=== PATIENT | female | born 1955 | race Caucasian/White ===

== ENCOUNTER → 2017-03-30 | Outpatient (CLI) | payer OTHER ==
--- NOTE | 2017-03-30 14:53 | DIAGNOSTIC IMAGING REPORT ---
L FOOT MIN 3 VIEWS ROUTINE CLINICAL HISTORY: Left foot pain status post trauma COMPARISON: None. DISCUSSION: There are postsurgical changes of a right first metatarsal bunionectomy. There is acute fracture involving the proximal phalanx of the fifth toe the junction of the middle distal one third. There are no dislocations. IMPRESSION: Acute fracture involving the proximal phalanx of the fifth toe. Electronically signed by: Shreyas Rangel M.D. 03/30/2017 2:51 PM Dictated Date/Time: 03/30/2017 2:50 PM
== END | disposition home or self-care (01) ==
LOC: C.RAD 14:10
PROVIDERS: ATTEND Physician Assistant Medical
DX: S92.515A Nondisplaced fracture of proximal phalanx of left lesser toe(s), initial encounter for closed fracture (principal); X58.XXXA Exposure to other specified factors, initial encounter

== ENCOUNTER 2017-10-20 11:34 | Emergency (ER) | payer OTHER ==
[~2017-10-20] VITALS: Ht 142.2 cm; Wt 50.0 kg
[2017-10-20 11:49] VITALS: TEMP 36.8; Ht 142.2 cm; Wt 50.0 kg
[2017-10-20] MEDS ORDERED: KETOROLAC TROMETHAMINE 60 MG/2 ML VIAL IM STA (12:40)
--- NOTE | 2017-10-20 13:18 | DIAGNOSTIC IMAGING REPORT ---
PELVIS 1 OR 2 VIEW ROUTINE HISTORY: 62 years-old Female Fall, low back pain acute low back and pelvic pain status post fall COMPARISON: Lumbar spine radiographs of same day TECHNIQUE: Single AP view of the pelvis FINDINGS: There are mild degenerative changes about the bilateral femoral acetabular joints. No acute fracture or dislocation. Phleboliths of the pelvis. IMPRESSION: No acute fracture or dislocation. The above report was generated using voice recognition software. It may contain grammatical, syntax or spelling errors. Electronically signed by: Eduard Ibrahim M.D. 10/20/2017 1:17 PM Dictated Date/Time: 10/20/2017 1:15 PM
--- NOTE | 2017-10-20 13:19 | DIAGNOSTIC IMAGING REPORT ---
L-SPINE MIN 4 VIEWS ROUTINE HISTORY: Trauma. Pain. Fall, low back pain COMPARISON: None. FINDINGS: There is no fracture. No subluxation. Disc spaces are preserved. IMPRESSION: No fracture or subluxation within the lumbar spine. The above report was generated using voice recognition software. It may contain grammatical, syntax or spelling errors. Electronically signed by: Joseph Gómez M.D. 10/20/2017 1:18 PM Dictated Date/Time: 10/20/2017 1:17 PM
--- NOTE | 2017-10-20 14:02 | DIAGNOSTIC IMAGING REPORT ---
LUMBAR SPINE WITHOUT CLINICAL HISTORY: 62 years-old Female presenting with Fall, low back pain. TECHNIQUE: Multidetector CT of the lumbar spine was performed without the use of intravenous contrast. IV contrast: None. A dose lowering technique was used consistent with the principles of ALARA (as low as reasonably achievable). COMPARISON: Plain radiographs from 10/20/2017. CT DOSE (mGy.cm): The estimated cumulative dose is 844.84 mGy.cm. FINDINGS: [employer] Engineer topogram: Unremarkable. Transitional lumbosacral anatomy with sacralization of L5. Normal lumbar lordosis. Vertebral bodies maintain normal height and alignment. Intervertebral disc heights preserved. No significant degenerative change. No osseous spinal canal or neural foraminal narrowing. Limited evaluation of the soft tissues demonstrates small disc bulge at L3-4 without significant spinal canal narrowing. Visualized portion of the sacrum is intact. Nondisplaced fracture of the right transverse process of L1 suspected. Mildly displaced fracture of the right transverse process of L2 suspected. 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 Mild facet arthropathy noted in the lower lumbar spine. Paraspinal soft tissues within normal limits allowing for noncontrast technique. IMPRESSION: 1. Fractures of the right transverse processes of L1 and L2. 2. Mild degenerative changes without osseous neural foraminal or spinal canal narrowing. 3. Transitional lumbosacral anatomy. Electronically signed by: Mahesh Sotelo M.D. 10/20/2017 2:01 PM Dictated Date/Time: 10/20/2017 1:53 PM
--- NOTE | 2017-10-20 14:17 | EMERGENCY ROOM VISIT NOTE ---
History First contact with patient: 11:52 Chief Complaint: FALL Stated Complaint: FALL - HIT HEAD, LEFT BACK PAIN, SWELLING History of Present Illness The patient is a 62 year old female who presents to the Emergency Room via private vehicle with complaints of "fall-hit head, left back pain, swelling". The patient states that on Thursday around 11 PM she was walking back to her residence when she believes she lost her balance and fell onto the concrete steps. She did not fall down them. She states that since then she has had pain in the left gluteal region and the low back. She also notes pain just below her chin. She denies any headache, lightheadedness, dizziness, nausea, numbness, tingling, burning in the lower extremity. She is able to bear weight but it is painful. She notes minimal numbness in the skin around a bruise on the left gluteal region. She had Motrin last night with minimal relief. Ice has also provided minimal relief. She has been able to sleep but the pain has been waking her up. She rates the pain as a 3/10 at rest and 10/10 with movement. She has a history of low back injury secondary to an injury she sustained while on the job in 1981. Review of Systems A complete 10-point Review of Systems was discussed with the patient, with pertinent positives and negatives listed in the History of Present Illness. All remaining Review of Systems questions can be considered negative unless otherwise specified. Past Medical/Surgical History Previous back injury. Family History Noncontributory. Social History Smoking Status: Never Smoker Patient lives locally. Current/Historical Medications Scheduled PRN Oxycodone Ir (Roxicodone Ir), 1-2 TAB PO Q6 PRN for Pain Physical Exam Vital Signs Date Time Temp Pulse Resp B/P (MAP) Pulse Ox O2 Delivery O2 Flow Rate FiO2 10/20/17 15:37 84 16 143/77 98 Room Air 10/20/17 14:39 71 16 141/83 99 Room Air 10/20/17 11:49 36.8 98 16 115/72 99 Room Air Physical Exam VITAL SIGNS - Vital signs and nursing notes were reviewed. Stable. GENERAL -62-year-old female appearing her stated age. Communicates well with provider and answers questions appropriately. SKIN - Gross examination of the entire body surface demonstrates no lacerations to the body surface. There is bruising noted to the left lateral superior gluteal region. HEAD - Normocephalic, Atraumatic. No Rudd's Sign or Raccoon's Eyes. No depressed skull fractures palpable. EYES - PERRL with EOMI bilaterally. Without subconjunctival hemorrhage. Palpebral conjunctiva pink and moist with no injection. EARS - No deformities of external structures noted on gross examination bilaterally. No hemotympanum present. NOSE - Midline and without cyanosis. No epistaxis or clear watery discharge noted. Septum midline without deviation. No septal hematoma noted. No overlying ecchymosis noted. MOUTH/OROPHARYNX - Without perioral cyanosis. Tongue midline with equal elevation of palate bilaterally. No blood noted in the oropharynx. No tonsillar hypertrophy, erythema, or exudates noted. No dental fractures noted. NECK -no tenderness to palpation over the cervical spinous processes. No cervical paraspinal muscle tenderness noted. LUNGS - Chest wall symmetric without accessory muscle use, intercostals retractions, or central cyanosis. No flail chest or depressed fractures noted. No paradoxical chest wall movements noted. Normal vesicular breath sounds CTA B /L. No wheezes, rales, or rhonchi appreciated. CARDIAC - RRR with S1/S2. No murmur, rubs, or gallops appreciated. ABDOMEN - Abdominal contour normal and without pulsations or visible masses. BS normoactive all four quadrants. MUSCULOSKELETAL: There is tenderness to palpation overlying the superior lumbar spinous processes as well as inferior into the sacral region. There is also bilateral paraspinous musculature tenderness of the lumbar spine. EXTREMITIES - No gross deformities noted of the extremities. No tenderness to palpation of the extremities. Small healing abrasions noted to the elbow regions bilaterally. +5/5 strength noted in UE/LE bilaterally. NEUROLOGIC - Cranial nerves II through XII grossly intact. Sensory intact to light touch throughout. PSYCH - A&Ox3 and cooperates fully with examiner. Pt is very pleasant and interacts well with examiner. Medical Decision & Procedures ER Provider Diagnostic Interpretation: L-SPINE MIN 4 VIEWS ROUTINE HISTORY: Trauma. Pain. Fall, low back pain COMPARISON: None. FINDINGS: There is no fracture. No subluxation. Disc spaces are preserved. IMPRESSION: No fracture or subluxation within the lumbar spine. The above report was generated using voice recognition software. It may contain grammatical, syntax or spelling errors. Electronically signed by: Joseph Gómez M.D. 10/20/2017 1:18 PM Dictated Date/Time: 10/20/2017 1:17 PM [~ rep ct add3]] PELVIS 1 OR 2 VIEW ROUTINE HISTORY: 62 years-old Female Fall, low back pain acute low back and pelvic pain status post fall COMPARISON: Lumbar spine radiographs of same day TECHNIQUE: Single AP view of the pelvis FINDINGS: There are mild degenerative changes about the bilateral femoral acetabular joints. No acute fracture or dislocation. Phleboliths of the pelvis. IMPRESSION: No acute fracture or dislocation. The above report was generated using voice recognition software. It may contain grammatical, syntax or spelling errors. Electronically signed by: Eduard Ibrahim M.D. 10/20/2017 1:17 PM Dictated Date/Time: 10/20/2017 1:15 PM LUMBAR SPINE WITHOUT CLINICAL HISTORY: 62 years-old Female presenting with Fall, low back pain. TECHNIQUE: Multidetector CT of the lumbar spine was performed without the use of intravenous contrast. IV contrast: None. A dose lowering technique was used consistent with the principles of ALARA (as low as reasonably achievable). COMPARISON: Plain radiographs from 10/20/2017. CT DOSE (mGy.cm): The estimated cumulative dose is 844.84 mGy.cm. FINDINGS: Animal Warden topogram: Unremarkable. Transitional lumbosacral anatomy with sacralization of L5. Normal lumbar lordosis. Vertebral bodies maintain normal height and alignment. Intervertebral disc heights preserved. No significant degenerative change. No osseous spinal canal or neural foraminal narrowing. Limited evaluation of the soft tissues demonstrates small disc bulge at L3-4 without significant spinal canal narrowing. Visualized portion of the sacrum is intact. Nondisplaced fracture of the right transverse process of L1 suspected. Mildly displaced fracture of the right transverse process of L2 suspected. 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 Mild facet arthropathy noted in the lower lumbar spine. Paraspinal soft tissues within normal limits allowing for noncontrast technique. IMPRESSION: 1. Fractures of the right transverse processes of L1 and L2. 2. Mild degenerative changes without osseous neural foraminal or spinal canal narrowing. 3. Transitional lumbosacral anatomy. Electronically signed by: Mahesh Sotelo M.D. 10/20/2017 2:01 PM Dictated Date/Time: 10/20/2017 1:53 PM [~ rep ct add3]] PELVIS NO IV/ORAL CONT (CT) HISTORY: 62 years-old Female Fall, low back pain acute low back pain status post fall COMPARISON: Lumbar spine CT of same day TECHNIQUE: Multiple axial CT images of the abdomen and pelvis were obtained without the use of IV contrast. A dose lowering technique was used consistent with the principals of ISAURA. 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 Severe facet arthrosis at L4-L5 with moderate L5-S1 facet disease. No acute fracture or subluxation. No sacral insufficiency fracture. Bilateral iliac bones appear intact. The pubic rami and ischial bones appear intact. Bilateral proximal femora also appear intact. Moderate degenerative changes about the pubic symphysis. At least mild degenerative changes about the bilateral femoral acetabular joints. Small disc space at S1-S2. There is a 5.2 x 1.8 cm hematoma adjacent to the left gluteus medius musculature without intramuscular extension. Mild subcutaneous edema about the left flank. No acute process of the imaged pelvis. Uterus and adnexa are unremarkable. No adenopathy or aortic aneurysm. IMPRESSION: 1. 5.2 cm hematoma adjacent to the left gluteus medius musculature. No acute fracture or dislocation is identified. 2. Partially imaged chronic fracture of the right L4 transverse process. 3. Degenerative changes of the pelvis, bilateral femoral acetabular joints and imaged lower lumbar spine as above. The above report was generated using voice recognition software. It may contain grammatical, syntax or spelling errors. Electronically signed by: Eduard Ibrahim M.D. 10/20/2017 2:44 PM Dictated Date/Time: 10/20/2017 1:53 PM Medications Administered Medications (Trade) Dose Ordered Sig/Safia Route Start Time Stop Time Status Last Admin Dose Admin Ketorolac Tromethamine (Toradol Inj) 30 mg NOW STAT IM 10/20/17 12:40 10/20/17 12:41 DC 10/20/17 12:47 30 MG Medical Decision Patient was seen and evaluated as above in room D4. Review was performed of nursing notes and vital signs. After obtaining a thorough history and physical examination the above work up was performed. She presents to us today with back pain status post fall that occurred a few days ago. I did elect to obtain x-rays. These were negative. I did have a high clinical index of suspicion secondary to the patient's exam that there could be underlying small fractures. I discussed benefit versus risk of obtaining CT scan with the patient. I did elect to obtain CT scan of the lumbar spine and pelvis without contrast. This does reveal small fractures of the transverse processes of L1 and L2. There is also a large hematoma in the left gluteal region. She was educated upon these findings and the report was discussed with the patient. Official report as above. I believe that the other findings to be chronic. She is to not lift anything heavy, and is to avoid strenuous activity/movements. She is to follow with the family doctor. She is also to follow with spine if she has persistence of symptoms or return with worsening. She will be given a short prescription of pain medication and there were no red flags in the [place] drug monitoring system. While here for pain she was given Toradol. The patient was educated upon management, had questions answered prior to discharge , and was discharged home in good condition. In the evaluation and treatment of this patient the following differential diagnoses were entertained: Lumbar fracture, dislocation, herniated disc, sacral fracture, contusion, gluteal hematoma, among others. Impression Primary Impression: Fall Additional Impressions: Lumbar transverse process fracture Contusion of multiple sites Departure Information Dispostion Home / Self-Care Condition GOOD Prescriptions Oxycodone Ir (Roxicodone Ir) 5 Mg Tab 1-2 TAB PO Q6 Y for Pain, #15 TAB For Initial Treatment Prov: Jose Luis Schaefer PA-C 10/20/17 Referrals Ayleen Louie M.D. (MEDICAL) (PCP) Patient Instructions [facility] Additional Instructions You have been treated in the Emergency Department for Back Pain with fractures of your L1 and L2 transverse processes. Please no heavy lifting or severe bending at the waist. You have been prescribed Oxy IR to be used for pain control. This is a narcotic medication. You cannot drive or consume alcohol while on this medicine. This medicine should only be used for pain that cannot be controlled with over-the- counter pain medicines. For pain control, you can use the following [id number] medicines: - Regular strength (325mg/tab) Tylenol (acetaminophen) 2 tabs every 4-6 hours as needed. Do not exceed 12 tablets in a 24 hour period. Avoid taking more than 3 grams (3000 mg) of Tylenol per day. This includes any other sources of acetaminophen you may take on a regular basis. - Regular strength (200 mg/tab) Advil (ibuprofen) 1-2 tabs every 4-6 hours as needed. Do not exceed a dose of 3200 mg per day. If this is an acute injury, ice can be applied to the area of pain for the first 3 days to help decrease pain and inflammation. After the first 3 days, a heating pad can be used over the area for continued soothing relief. You should schedule a follow-up appointment in 2-3 days with your Primary Care Provider for further evaluation and treatment of your back pain. Return to the Emergency Department if your current symptoms worsen despite treatment course outlined above, or if you develop any of the following symptoms : intractable pain despite aforementioned treatment course, loss of control of your bowel or bladder, numbness or tingling in your groin, or development of a fever. L-SPINE MIN 4 VIEWS ROUTINE HISTORY: Trauma. Pain. Fall, low back pain COMPARISON: None. FINDINGS: There is no fracture. No subluxation. Disc spaces are preserved. IMPRESSION: No fracture or subluxation within the lumbar spine. PELVIS 1 OR 2 VIEW ROUTINE HISTORY: 62 years-old Female Fall, low back pain acute low back and pelvic pain status post fall COMPARISON: Lumbar spine radiographs of same day TECHNIQUE: Single AP view of the pelvis FINDINGS: There are mild degenerative changes about the bilateral femoral acetabular joints. No acute fracture or dislocation. Phleboliths of the pelvis. IMPRESSION: No acute fracture or dislocation. LUMBAR SPINE WITHOUT CLINICAL HISTORY: 62 years-old Female presenting with Fall, low back pain. TECHNIQUE: Multidetector CT of the lumbar spine was performed without the use of intravenous contrast. IV contrast: None. A dose lowering technique was used consistent with the principles of ALARA (as low as reasonably achievable). COMPARISON: Plain radiographs from 10/20/2017. CT DOSE (mGy.cm): The estimated cumulative dose is 844.84 mGy.cm. FINDINGS: Animal Warden topogram: Unremarkable. Transitional lumbosacral anatomy with sacralization of L5. Normal lumbar lordosis. Vertebral bodies maintain normal height and alignment. Intervertebral disc heights preserved. No significant degenerative change. No osseous spinal canal or neural foraminal narrowing. Limited evaluation of the soft tissues demonstrates small disc bulge at L3-4 without significant spinal canal narrowing. Visualized portion of the sacrum is intact. Nondisplaced fracture of the right transverse process of L1 suspected. Mildly displaced fracture of the right transverse process of L2 suspected. 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 Mild facet arthropathy noted in the lower lumbar spine. Paraspinal soft tissues within normal limits allowing for noncontrast technique. IMPRESSION: 1. Fractures of the right transverse processes of L1 and L2. 2. Mild degenerative changes without osseous neural foraminal or spinal canal narrowing. 3. Transitional lumbosacral anatomy. PELVIS NO IV/ORAL CONT (CT) HISTORY: 62 years-old Female Fall, low back pain acute low back pain status post fall COMPARISON: Lumbar spine CT of same day TECHNIQUE: Multiple axial CT images of the abdomen and pelvis were obtained without the use of IV contrast. A dose lowering technique was used consistent with the principals of ISAURA. 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 Severe facet arthrosis at L4-L5 with moderate L5-S1 facet disease. No acute fracture or subluxation. No sacral insufficiency fracture. Bilateral iliac bones appear intact. The pubic rami and ischial bones appear intact. Bilateral proximal femora also appear intact. Moderate degenerative changes about the pubic symphysis. At least mild degenerative changes about the bilateral femoral acetabular joints. Small disc space at S1-S2. There is a 5.2 x 1.8 cm hematoma adjacent to the left gluteus medius musculature without intramuscular extension. Mild subcutaneous edema about the left flank. No acute process of the imaged pelvis. Uterus and adnexa are unremarkable. No adenopathy or aortic aneurysm. IMPRESSION: 1. 5.2 cm hematoma adjacent to the left gluteus medius musculature. No acute fracture or dislocation is identified. 2. Partially imaged chronic fracture of the right L4 transverse process. 3. Degenerative changes of the pelvis, bilateral femoral acetabular joints and imaged lower lumbar spine as above. Problem Qualifiers
--- NOTE | 2017-10-20 14:45 | DIAGNOSTIC IMAGING REPORT ---
PELVIS NO IV/ORAL CONT (CT) HISTORY: 62 years-old Female Fall, low back pain acute low back pain status post fall COMPARISON: Lumbar spine CT of same day TECHNIQUE: Multiple axial CT images of the abdomen and pelvis were obtained without the use of IV contrast. A dose lowering technique was used consistent with the principals of ISAURA. 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 Severe facet arthrosis at L4-L5 with moderate L5-S1 facet disease. No acute fracture or subluxation. No sacral insufficiency fracture. Bilateral iliac bones appear intact. The pubic rami and ischial bones appear intact. Bilateral proximal femora also appear intact. Moderate degenerative changes about the pubic symphysis. At least mild degenerative changes about the bilateral femoral acetabular joints. Small disc space at S1-S2. There is a 5.2 x 1.8 cm hematoma adjacent to the left gluteus medius musculature without intramuscular extension. Mild subcutaneous edema about the left flank. No acute process of the imaged pelvis. Uterus and adnexa are unremarkable. No adenopathy or aortic aneurysm. IMPRESSION: 1. 5.2 cm hematoma adjacent to the left gluteus medius musculature. No acute fracture or dislocation is identified. 2. Partially imaged chronic fracture of the right L4 transverse process. 3. Degenerative changes of the pelvis, bilateral femoral acetabular joints and imaged lower lumbar spine as above. The above report was generated using voice recognition software. It may contain grammatical, syntax or spelling errors. Electronically signed by: Eduard Ibrahim M.D. 10/20/2017 2:44 PM Dictated Date/Time: 10/20/2017 1:53 PM
[2017-10-20] MEDS ORDERED: OXYC1TAB3 PO (15:33)
[2017-10-20 15:37] VITALS: BP 143/77; PULSE 84; O2SAT 98
== END 2017-10-20 16:00 | disposition home or self-care (01) ==
LOC: C.EDB 11:37 → C.EDD 16:00
DX: S32.019A Unspecified fracture of first lumbar vertebra, initial encounter for closed fracture (principal); S32.029A Unspecified fracture of second lumbar vertebra, initial encounter for closed fracture; T14.8XXA Other injury of unspecified body region, initial encounter; W10.9XXA Fall (on) (from) unspecified stairs and steps, initial encounter; Y92.009 Unspecified place in unspecified non-institutional (private) residence as the place of occurrence of the external cause

== ENCOUNTER 2019-03-17 07:49 | Inpatient (IN) ==
--- NOTE | 2019-02-10 13:31 | PAT Medication Instructions ---
Medication Instructions Date of Service February 10, 2019 Home Medications fluticasone propionate [Flonase Allergy Relief] 2 spray INTRANASAL DAILY triamcinolone acetonide 1 applic TOPICAL DIRECTED PRN methocarbamol 1 tab PO UD PRN STOP taking 24 hours before surgery triamcinolone acetonide 1 applic TOPICAL DIRECTED PRN DO NOT take the morning of surgery methocarbamol 1 tab PO UD PRN Take morning of surgery With a small sip of water, OTHERWISE NOTHING TO EAT OR DRINK AFTER MIDNIGHT: fluticasone propionate [Flonase Allergy Relief] 2 spray INTRANASAL DAILY Other Notes If you have any questions please call us at [phone] or [phone] or [phone] or [phone]
--- NOTE | 2019-02-11 09:25 | Anesthesiology Consultation ---
Date of Service February 11, 2019 Assessment & Plan (1) Encounter for pre-operative examination: Chart Review Chart Review: Acceptable Risk for Surgery (pending surgeon-ordered PCP clearance scheduled 02/16 (Dr. Breann Valle; [facility])) and Patient seen in Pre Admission Testing Teaching & Discussion Pre-Anesthesia Teaching/Discussion Notes: Instructed NPO after midnight before surgery,except medications with 15 cc of water. Medication instructions provided according to the PAT guidelines. History Surgery Operation Date: 03/17/19 09:55 Proposed Procedures p Left Reverse Total Shoulder Arthroplasty - Mahesh Dorsey MD Height/Weight Height: 4 ft 8.75 in Weight: 49.5 kg Allergies Allergy/AdvReac Type Severity Reaction Status Date / Time Penicillins Allergy Intermediate localized Verified 02/11/19 09:33 swelling (from PCN containing cream) latex Allergy Rash, Verified 02/03/19 08:59 Blisters CATS Allergy Intermediate swelling Uncoded 02/11/19 09:33 Medications Home Medications Medication Instructions Recorded Confirmed Last Taken fluticasone propionate [Flonase 2 spray INTRANASAL DAILY 11/11/18 02/03/19 11/11/18 Allergy Relief] triamcinolone acetonide 1 applic TOPICAL DIRECTED PRN 11/11/18 02/03/19 Unknown methocarbamol 1 tab PO UD PRN 02/03/19 02/03/19 Unknown Past Medical History Medical History Depression Migraine Rheumatoid arthritis no meds/no patient access specialist Exercise / Class Metabolic Activity II 4-5 Yardwork/Stairs/Walk up hill Past Family History Family History Uncle Family history of diabetes mellitus Past Surgical History Surgical History History of appendectomy History of bunionectomy History of colonoscopy History of surgery CYSTIC HYGROMA REMOVAL History of tonsillectomy History of wisdom tooth extraction Hx of repair of left rotator cuff Hx of repair of right rotator cuff Right shoulder arthroscopy with RCR: 01/12/14: Grade view 1, MAC#3, ETT 7.0 [place] [facility] [place] post tendon repair LEFT SHOULDER Past Anesthesia History No Family Hx of Anesthesia Complications and Other *"Resistant to medication" and states that is has taken "more medication" to put to sleep in the past. "Slow to wake"; no known hx of reintubation.* History of PONV No Hx of PONV and Hx of Motion Sickness Social History Smoking Status: Never smoker Do You Dip or Chew Tobacco: No Hx Alcohol Use: Yes Alcohol type: wine and hard liquor alcohol intake frequency: a few times a week Hx Substance Use: No substance use type: does not use Review of Systems Rare reflux. Patient denies chest pain, shortness of breath, dyspnea on exertion, cough, wheezing, palpitations. Physical Exam Vital Signs VITALS BP 128/75 P 75 TEMP 98.4 SP02 98%RA RESP 18 PHYSICAL Full neck and c-spine range of motion. Full TMJ range of motion. TMD 3 finger breaths Mallampati Score 3 Dentition: missing molars Lungs: clear throughout to auscultation Cardiac: regular rate and rhythm, no murmurs noted Spine: normal Carotid arteries: negative bruit Extremities: no edema Testing Laboratory Results 02/11/19 09:50 02/11/19 09:50 PT 9.9 Seconds (9.0-12.0) 02/11/19 09:50 INR 1.0 (0.9-1.1) 02/11/19 09:50 APTT 26.1 Seconds (21.0-31.0) 02/11/19 09:50 Hemoglobin A1c 5.9 % (4.5-5.6) H 02/11/19 09:50 Urine Color Yellow 02/11/19 09:50 Urine Appearance Clear (Clear) 02/11/19 09:50 Urine pH 6.5 (4.5-7.5) 02/11/19 09:50 Ur Specific [place] 1.018 (1.000-1.030) 02/11/19 09:50 Urine Protein Negative (Negative) 02/11/19 09:50 Urine Glucose (UA) Negative (Negative) 02/11/19 09:50 Urine Ketones Negative (Negative) 02/11/19 09:50 Urine Nitrite Negative (Negative) 02/11/19 09:50 Ur Leukocyte Esterase Trace (Negative) H 02/11/19 09:50 Urine WBC (Auto) 1-5 /hpf (0-5) 02/11/19 09:50 Urine RBC (Auto) 0-4 /hpf (0-4) 02/11/19 09:50 U Hyaline Cast (Auto) 1-5 /lpf (0-5) 02/11/19 09:50 U Epithel Cells (Auto) >30 /lpf (0-5) H 02/11/19 09:50 Urine Bacteria (Auto) Negative (Negative) 02/11/19 09:50 Blood Type O Positive 02/11/19 09:50 Antibody Screen NEGATIVE 02/11/19 09:50 02/11/19 09:50 Urine Culture - Final Urine,Clean Catch More than three types of organisms present, all low counts mixed probable skin krishna. No further identifications or sensitivities to follow. Electrocardiogram Date: 02/11/19 Findings: + NSR @ (72) Chest X-Ray Date: 02/11/19 Findings: + NAD
--- NOTE | 2019-02-11 10:23 | XRay Report ---
XR chest Pre-admission PA/Lat CLINICAL HISTORY: PAT COMPARISON STUDY: No previous studies for comparison. FINDINGS: The bones soft tissues and hemidiaphragms are normal. The cardiomediastinal silhouette is n ormal. The lungs are clear. The pulmonary vasculature is normal. IMPRESSION: Negative chest. The above report was generated using voice recognition software. It may contain grammatical, syntax or spelling errors. Electronically signed by: Joseph Gómez M.D. 02/11/2019 10:22 AM
[2019-02-11 10:33] LABS: Basophils # (auto) 0.02 K/uL (0-0.2); Basophils % (auto) 0.4 %; Eosinophils % (auto) 2.1 %; Hematocrit (blood only) 36.6 % (37-47); Hemoglobin 12.2 g/dL (12.0-16.0); Immature Granulocytes # (auto) 0.01 K/uL (0.00-0.02); Immature Granulocytes % (auto) 0.2 %; Lymphocytes # (auto) 1.64 K/uL (1.2-3.4); Lymphocytes % (auto) 34.2 %; Mean Corpuscular Hemoglobin 31.6 pg (25-34); Mean Corpuscular Hgb Conc 33.3 g/dL (32-36); Mean Corpuscular Volume 94.8 fL (80-100); Mean Platelet Volume 9.4 fL (7.4-10.4); Monocytes # (auto) 0.61 K/uL (0.11-0.59); Monocytes % (auto) 12.7 %; Neutrophils # (auto) 2.42 K/uL (1.4-6.5); Neutrophils % (auto) 50.4 %; Platelet Count 232 K/uL (130-400); RDW Coefficient of Variation 13.7 % (11.5-14.5); RDW Standard Deviation 47.2 fL (36.4-46.3); Red Blood Count 3.86 M/uL (4.2-5.4)
[2019-02-11 10:41] LABS: Appearance Urine Clear (Clear); Bacteria Urine Automated Negative (Negative); Bilirubin Urine Negative (Negative); Blood Urine Negative (Negative); Color Urine Yellow; Epithelial Cell Urine Auto >30 /lpf (0-5); Glucose Urine UA Negative (Negative); Ketones Urine Negative (Negative); Leukocyte Esterase Urine Trace (Negative); Nitrite Urine Negative (Negative); Protein Urine Negative (Negative); RBC Urine Automated 0-4 /hpf (0-4); Specific Gravity Urine 1.018 (1.000-1.030); Urobilinogen Urine Negative (Negative); pH Urine 6.5 (4.5-7.5)
[2019-02-11 10:43] LABS: Albumin Level 3.7 gm/dl (3.4-5.0); BUN Creatinine Ratio 19.6 (10-20); Calcium 8.5 mg/dl (8.5-10.1); Creatinine Clr Calc Pharmacy 55.3 ml/min; Est GFR (African American) 106.9; Est GFR (Non-African American) 92.2; Potassium 4.8 mmol/L (3.5-5.1)
[2019-02-11 10:45] LABS: Partial Thromboplastin Time 26.1 Seconds (21.0-31.0); Prothrombin Time 9.9 Seconds (9.0-12.0)
[2019-02-11 10:53] LABS: Estimated Average Glucose 123 mg/dl; Hemoglobin A1C 5.9 % (4.5-5.6)
--- NOTE | 2019-03-09 12:01 | History & Physical Report ---
Date of Service March 09, 2019 Assessment & Plan (1) Rotator cuff arthropathy of left shoulder: Patient has failed conservative measures as above. She has had prior rotator cuff repair and revision repair several years ago. Radiographs consistent with rotator cuff arthropathy. Risks, benefits and alternatives to surgery including but not limited to infection, DVT, pain, stiffness, need for revision surgery, damage to blood vessels, damage to nerves, PE, , were discussed with the patient and they wish to proceed. Plan will be for left reverse total shoulder arthroplasty. Will plan on patient going home with home health physical therapy upon discharge. All questions answered. She will follow up in the office post operatively. History of Present Illness Chief Complaint: Left shoulder pain Primary Care Provider: Breann Valle DO 63 year old female with PMHx significant for migraines and depression, as well as mild asthma presents with complaint of ongoing left shoulder pain. She previously has had rotator cuff repair on the left shoulder with a retear, followed by open rotator cuff repair and subscapularis repair. She had done well, however has had ongoing pain. She has failed conservative measures including physical therapy and NSAIDs. She has had cortisone injections in the past with minimal relief. Radiographs consistent with rotator cuff arthropathy. She would like to proceed with surgical intervention. Patient denies headaches, sweats, fevers, chills, double vision, blurred vision, cough, sore throat, dysp hagia, chest pain, sob, wheezing, n/v/d/c, numbness, tingling, fatigue, urinary symptoms, mood disorders. ROS positive for left shoulder pain and stiffness. Allergies Allergy/AdvReac Type Severity Reaction Status Date / Time Penicillins Allergy Intermediate localized Verified 02/11/19 09:33 swelling (from PCN containing cream) latex Allergy Rash, Verified 02/03/19 08:59 Blisters CATS Allergy Intermediate swelling Uncoded 02/11/19 09:33 Home Medications Home Medications Medication Instructions Recorded Confirmed Type fluticasone propionate [Flonase 2 spray INTRANASAL DAILY 11/11/18 02/03/19 History Allergy Relief] triamcinolone acetonide 1 applic TOPICAL DIRECTED PRN 11/11/18 02/03/19 History methocarbamol 1 tab PO UD PRN 02/03/19 02/03/19 History Past Med/Surg History Medical History Depression Migraine Rheumatoid arthritis no meds/no vp rheumatology Surgical History History of appendectomy History of bunionectomy History of colonoscopy History of surgery CYSTIC HYGROMA REMOVAL History of tonsillectomy History of wisdom tooth extraction Hx of repair of left rotator cuff Hx of repair of right rotator cuff Right shoulder arthroscopy with RCR: 01/12/14: Grade view 1, MAC#3, ETT 7.0 at [facility] [place] Status post tendon repair LEFT SHOULDER Family History Uncle Family history of diabetes mellitus Social History Preferred Language: Uzbek Communication Ability: Effective Pulp Press Tender Required: No Beliefs That Will Affect Care: None Current Living Situation: Alone Other Information That Helps Us Care for You: No Feels Safe at Home: Yes Safety Concerns: Feels Safe At This Time Smoking Status: Never smoker Do You Dip or Chew Tobacco: No ; Second Hand Exposure: Yes ; Hx Alcohol Use: Yes Alcohol type: wine and hard liquor Hx Substance Use: No Review of Systems All systems reviewed & are unremarkable except as noted in HPI & below Physical Exam Constitutional: well developed and well nourished; no acute distress Eyes: PERRL, conjunctivae normal, anicteric sclerae ENMT: external ear and nose normal, oropharynx normal Neck: trachea midline, no thyromegaly Respiratory: normal respiratory effort, lungs clear to auscultation Cardiovascular: RRR, no murmur, no edema Musculoskeletal: Left Shoulder-Mild diffuse tenderness. Decreased ROM in all directions, weakness 3/5 to supraspinatus and infraspinatus. Positive impingement signs. Skin: no rashes, warm and dry Neurologic: patellar DTR's 2+ bilat, sensation intact Psychiatric: A+Ox3, euthymic affect Results & Data Laboratory Results Lab Results 02/11/19 02/11/19 02/11/19 Range/Units 09:50 09:50 09:50 WBC 4.80 (4.8-10.8) K/uL RBC 3.86 L (4.2-5.4) M/uL Hgb 12.2 (12.0-16.0) g/dL Hct 36.6 L (37-47) % MCV 94.8 (80-100) fL MCH 31.6 (25-34) pg MCHC 33.3 (32-36) g/dL RDW Std Deviation 47.2 H (36.4-46.3) fL RDW Coeff of Lou 13.7 (11.5-14.5) % Plt Count 232 (130-400) K/uL MPV 9.4 (7.4-10.4) fL Immature Gran % (Auto) 0.2 % Neut % (Auto) 50.4 % Lymph % (Auto) 34.2 % Weber % (Auto) 12.7 % Eos % (Auto) 2.1 % Baso % (Auto) 0.4 % Immature Gran # (Auto) 0.01 (0.00-0.02) K/uL Neut # (Auto) 2.42 (1.4-6.5) K/uL Lymph # (Auto) 1.64 (1.2-3.4) K/uL Weber # (Auto) 0.61 H (0.11-0.59) K/uL Eos # (Auto) 0.10 (0-0.5) K/uL Baso # (Auto) 0.02 (0-0.2) K/uL PT 9.9 (9.0-12.0) Seconds INR 1.0 (0.9-1.1) APTT 26.1 (21.0-31.0) Seconds PTT Ratio 1.0 Sodium 140 (136-145) mmol/L Potassium 4.8 (3.5-5.1) mmol/L Chloride 105 (98-107) mmol/L Carbon Dioxide 29 (21-32) mmol/L Anion Gap 6.0 (3-11) BUN 14 (7-18) mg/dl Creatinine 0.70 (0.6-1.2) mg/dl Est Cr Clr Drug Dosing 55.3 ml/min Est GFR ( Amer) 106.9 Est GFR (Non-Af Amer) 92.2 BUN/Creatinine Ratio 19.6 (10-20) Glucose 87 (70-99) mg/dl Estimat Average Glucose mg/dl Hemoglobin A1c (4.5-5.6) % Calcium 8.5 (8.5-10.1) mg/dl Albumin 3.7 (3.4-5.0) gm/dl Urine Color Urine Appearance (Clear) Urine pH (4.5-7.5) Ur Specific [place] (1.000-1.030) Urine Protein (Negative) Urine Glucose (UA) (Negative) Urine Ketones (Negative) Urine Blood (Negative) Urine Nitrite (Negative) Urine Bilirubin (Negative) Urine Urobilinogen (Negative) Ur Leukocyte Esterase (Negative) Urine WBC (Auto) (0-5) /hpf Urine RBC (Auto) (0-4) /hpf U Hyaline Cast (Auto) (0-5) /lpf U Epithel Cells (Auto) (0-5) /lpf Urine Bacteria (Auto) (Negative) Blood Type Antibody Screen 02/11/19 02/11/19 02/11/19 Range/Units 09:50 09:50 09:50 WBC (4.8-10.8) K/uL RBC (4.2-5.4) M/uL Hgb (12.0-16.0) g/dL Hct (37-47) % MCV (80-100) fL MCH (25-34) pg MCHC (32-36) g/dL RDW Std Deviation (36.4-46.3) fL RDW Coeff of Lou (11.5-14.5) % Plt Count (130-400) K/uL MPV (7.4-10.4) fL Immature Gran % (Auto) % Neut % (Auto) % Lymph % (Auto) % Weber % (Auto) % Eos % (Auto) % Baso % (Auto) % Immature Gran # (Auto) (0.00-0.02) K/uL Neut # (Auto) (1.4-6.5) K/uL Lymph # (Auto) (1.2-3.4) K/uL Weber # (Auto) (0.11-0.59) K/uL Eos # (Auto) (0-0.5) K/uL Baso # (Auto) (0-0.2) K/uL PT (9.0-12.0) Seconds INR (0.9-1.1) APTT (21.0-31.0) Seconds PTT Ratio Sodium (136-145) mmol/L Potassium (3.5-5.1) mmol/L Chloride (98-107) mmol/L Carbon Dioxide (21-32) mmol/L Anion Gap (3-11) BUN (7-18) mg/dl Creatinine (0.6-1.2) mg/dl Est Cr Clr Drug Dosing ml/min Est GFR ( Amer) Est GFR (Non-Af Amer) BUN/Creatinine Ratio (10-20) Glucose (70-99) mg/dl Estimat Average Glucose 123 mg/dl Hemoglobin A1c 5.9 H (4.5-5.6) % Calcium (8.5-10.1) mg/dl Albumin (3.4-5.0) gm/dl Urine Color Yellow Urine Appearance Clear (Clear) Urine pH 6.5 (4.5-7.5) Ur Specific [place] 1.018 (1.000-1.030) Urine Protein Negative (Negative) Urine Glucose (UA) Negative (Negative) Urine Ketones Negative (Negative) Urine Blood Negative (Negative) Urine Nitrite Negative (Negative) Urine Bilirubin Negative (Negative) Urine Urobilinogen Negative (Negative) Ur Leukocyte Esterase Trace H (Negative) Urine WBC (Auto) 1-5 (0-5) /hpf Urine RBC (Auto) 0-4 (0-4) /hpf U Hyaline Cast (Auto) 1-5 (0-5) /lpf U Epithel Cells (Auto) >30 H (0-5) /lpf Urine Bacteria (Auto) Negative (Negative) Blood Type O Positive Antibody Screen NEGATIVE Left shoulder radiographs: Humeral head elevation, rounding of humeral head. Cystic change consistent to prior rotator cuff repair
[~2019-03-17 07:49] MED LIST: ACETAMINOPHEN 500 MG TAB PO SCH; CLINDAMYCIN 600 MG/54 ML BAG IV SCH; CeleBREX 200 MG CAP PO SCH; FAMOTIDINE 20 MG TAB PO SCH; GABAPENTIN 600 MG DOSE PO SCH; LR 15ML/HR IV SCH; ROPIVACAINE 0.5% 5 MG/ML 30 ML VIAL ONE; TRANEXAMIC ACID 1,000 MG **IV Intra-op IV SCH; TRANEXAMIC ACID 1,000 MG **IV Pre-op IV SCH; dexAMETHasone 4 MG TAB PO SCH
[2019-03-17] MEDS ORDERED: LIDOCAINE HCL 2% 2 ML VIAL/AMP(20MG/ML) INFIL ONE (08:15)
[2019-03-17] MEDS ORDERED: NEOSTIGMINE METHYLSULFATE 5 MG/5 ML SYR ONE (08:15)
[2019-03-17] MEDS ORDERED: fentaNYL citrate 100 MCG/2 ML VIAL ONE (08:15)
[2019-03-17] MEDS ORDERED: GLYCOPYRROLATE 0.2 MG/ML VIAL ONE (08:15)
[2019-03-17] MEDS ORDERED: ONDANSETRON INJ 2 MG/ML 2 ML VIAL ONE ×2 (08:15→11:12)
[2019-03-17] MEDS ORDERED: PROPOFOL IV EMULSION 10 MG/ML 20 ML VIAL IV ONE (08:15)
[2019-03-17] MEDS ORDERED: MIDAZOLAM HCL 1 MG/ML 2ML VIAL ONE (08:15)
[2019-03-17] MEDS ORDERED: DEXAMETHASONE SOD INJ 4 MG/ML VIAL ONE (08:15)
--- NOTE | 2019-03-17 08:18 | History & Physical Bridge Note ---
Date of Service March 17, 2019 History & Physical Bridge Note I have examined the patient, reviewed the History & Physical and in the interval since the performance of the History & Physical I have noted the following changes of clinical significance: no changes noted
[2019-03-17] MEDS ORDERED: ROCURONIUM BROMIDE 10 MG/ML 5 ML VIAL ONE (08:25)
[2019-03-17] MEDS ORDERED: THROMBIN FOR SOLN 20000 UNIT KIT ONE (09:16)
[2019-03-17] MEDS ORDERED: BACITRACIN INJ 50,000 UNIT VIAL ONE (09:16)
[2019-03-17] MEDS ORDERED: VANCOMYCIN HCL 1000MG/20ML VIAL ONE (09:16)
[2019-03-17] MEDS ORDERED: ATROPINE SULFATE 0.1 MG/ML 10ML SYR IV PRN (09:31)
[2019-03-17] MEDS ORDERED: ePHEDrine sulfate 50 MG/ML AMP IV PRN (09:31)
[2019-03-17] MEDS ORDERED: PROMETHAZINE HCL 12.5 MG in SODIUM CHLORIDE 0.9% 50 ML IV PRN (09:31)
[2019-03-17] MEDS ORDERED: ONDANSETRON INJ 2 MG/ML 2 ML VIAL IV PRN ×2 (09:31→13:03)
[2019-03-17] MEDS: ROPIVACAINE 0.5% HCL/PF 150 MG, BUPIVACAINE 0.5% MPF 30 ML, EPINEPHrine 30MG/30ML (OR U... INFIL SCH ×2 (10:55→11:06)
--- NOTE | 2019-03-17 11:19 | Operative Report ---
Post Operative Report Pre & Post Diagnosis Operation Date: 03/17/19 09:55 Pre-Op Diagnosis: Left Shoulder rotator cuff arthropathy Post-Op Diagnosis: Left Shoulder rotator cuff arthropathy Procedure Operation Date: 03/17/19 09:55 Actual Procedures p Left Reverse Total Shoulder Arthroplasty(Left) - Mahesh Dorsey MD Surgeon Mahesh Dorsey MD Proof Technician Helper Regino Fuller PA-C Estimated Blood Loss 50 Findings Consistent with Post-Op Diagnosis Specimens Bone and tissue Drains 1 Hemovac Anesthesia Type General Regional Complications none Disposition Accompanied Patient To Recovery: No Disposition: Recovery Room Indications The patient is a 63-year-old female long-standing rotator cuff arthropathy left shoulder. She has had multiple surgeries on the left shoulder for attempted rotator cuff repair. Imaging demonstrates re-tearing of the rotator cuff with significant humeral head elevation and arthritic change consistent with left shoulder rotator cuff arthropathy. She has failed conservative measures including injection, anti-inflammatories and rehab. She wishes to proceed with a left reverse total shoulder arthroplasty. Description of Procedure Risks, benefits and alternatives to surgery including, but not limited to, infection DVT, pain, stiffness, need for revision surgery, failure to relieve all symptoms, damage to blood vessels, damage to nerves, risk of anesthesia were discussed with the patient and they wished to proceed. The patient was identified. Laterality was confirmed and marked. The patient received a preoperative antibiotic as well as an interscalene block. They were transferred to the operating room and placed in the supine position and induced into general endotracheal anesthesia per the anesthesia staff. The patient was then safely transferred to a slight beachchair position. The patient was secured in the Tenet positioner. All pressure points were well padded. The shoulder was prepped and draped in the usual sterile manner with ChloraPrep. The arm was secured in the Spider gould. I made a longitudinal incision just lateral to the coracoid, sharply incising through the skin and utilizing Bovie electrocautery to achieve hemostasis. I identified the cephalic vein and mobilized it laterally with the deltoid. I mobilize the pectoralis and mobilize this medially releasing a small portion of the upper border of the pec tendon to improve visualization. I then identified and mobilized the conjoined tendon. I identified the long head of the biceps tendon. The long head biceps tendon was absent. I then released the subscapularis. I pinned into place my humeral head version cutting guide and made my humeral head resection. There were a number of old suture anchors that need to be removed. I then sequentially reamed and sequentially broached. I then placed the trial humeral stem into the shoulder. I placed retractors around the glenoid and then excised the residual biceps tendon stump and glenoid labrum. I elevated the soft tissues and the inferior aspect of the glenoid to improve exposure and released tissues circumferentially. I then positioned and drilled for the central post for the glenoid plate. The glenoid plate was bone grafted with bone taken from the humeral head. I impacted the definitive glenoid plate into position and then placed a total of 4 compression screws that were then locked into position with locking caps. I then placed the glenosphere onto the plate and secured it with a locking screw. I then removed the trial humeral stem and placed the definitive humeral stem. I trialed off of the definitive stem. The definitive components used were [employer] Equinox: Preserve short humeral press-fit stem: 6 Standard glenoid plate Glenosphere: 38 Humeral tray:+ 0 Humeral polyethylene liner: + 0 I thoroughly irrigated the wound. Deep tissues were anesthetized with an orthomix solution. I then locked my definitive humeral tray into position with a torque limiting screw. I then impacted the definitive humeral polyethylene liner into position. I then reduced the shoulder. There was good range of motion and good stability after the reduction. The wound was again thoroughly irrigated and a Betadine soak was performed. A deep drain was placed. The deltopectoral interval was closed with interrupted #1 Ethibond suture. The subcutaneous tissue was closed with interrupted 2-0 Vicryl suture. The skin was closed with alex. A sterile dressing was applied. A sling was placed. All needle and sponge counts were correct at the end of the procedure. The patient was transferred to the PACU in stable condition without apparent complication. The PA-C was necessary for assistance with procedure for assistance in positioning, prepping, draping, retraction and closure. I attest to the content of the Intraoperative Record and any orders documented therein. Any exceptions are noted below.
[2019-03-17] MEDS: fentaNYL citrate 100 MCG/2 ML VIAL IV PRN ×2 (11:51→11:56)
[2019-03-17] MEDS ORDERED: MEPERIDINE HCL 25 MG/ML CARP ONE ×2 (12:05→12:21)
--- NOTE | 2019-03-17 12:15 | XRay Report ---
XR shoulder LT min 2V routine CLINICAL HISTORY: 63 years-old Female presenting with Post shoulder surgery. TECHNIQUE: Frontal and transscapular Y views of the left shoulder were obtained. COMPARISON: 06/22/2012. FINDINGS: Postsurgical changes of reverse left total shoulder arthroplasty. Expected soft tissue emphysema and overlying skin alex. A surgical drain is in place. Acromioclavicular joint congruent. No periprost hetic fracture or malalignment. Visualized portion of the left lung clear. IMPRESSION: Expected postsurgical appearance status post reverse total left shoulder arthroplasty. Electronically signed by: Mahesh Sotelo M.D. 03/17/2019 12:14 PM
[2019-03-17] MEDS: MEPERIDINE HCL 25 MG/ML CARP IV PRN ×2 (12:21→12:26)
--- NOTE | 2019-03-17 12:35 | Anesthesiology Progress Note ---
Date of Service March 17, 2019 Anesthesia Post Procedure Vital Signs Vital Signs: Temp Pulse Resp BP Pulse Ox 03/17/19 12:20 79 15 107/68 98 03/17/19 12:10 83 15 106/73 100 03/17/19 12:00 57 L 16 93/63 L 100 03/17/19 11:50 76 16 126/79 100 03/17/19 11:40 36.3 C L 72 16 121/82 100 03/17/19 08:42 36.6 C 79 16 130/92 96 Pain Intensity Left Shoulder: Pain Intensity: 7 Transfer of Care Handoff Completed per policy Notes Mental Status: alert / awake / arousable and participated in evaluation Patient Amnestic to Procedure: Yes Nausea / Vomiting: adequately controlled Pain: adequately controlled Airway Patency, RR, SpO2: stable & adequate BP & HR: stable & adequate Hydration State: stable & adequate Anesthetic Complications: no major complications apparent and Pt Satisfied with anesthetic care Notes: Block is functioning.
[2019-03-17] MEDS ORDERED: NALOXONE HCL 0.4 MG/1 ML VIAL/CARP IV PRN (13:03)
[2019-03-17] MEDS ORDERED: MAGNESIUM HYDROXIDE SUSP 30 ML UDC PO PRN (13:03)
[2019-03-17] MEDS: SODIUM CHLORIDE 0.9% 1000ML 1,000 ML IV SCH ×2 (13:56→23:50)
[2019-03-17] MEDS: ACETAMINOPHEN 500 MG TAB PO SCH ×2 (14:09→21:57)
[2019-03-17] MEDS: CLINDAMYCIN 600 MG in DEXTROSE 5% 50 ML IV SCH (17:31)
[2019-03-17] MEDS ORDERED: COUGH DROP (SUGAR FREE) LOZ 24 LOZ/1 BOX BUCCAL PRN (20:14)
[2019-03-17] MEDS ORDERED: COUGH DROP (SUGAR FREE) LOZ 24 LOZ/1 BOX BUCCAL ONE (20:17)
[2019-03-17] MEDS: DOCUSATE SODIUM 100 MG CAP PO SCH (21:56)
[2019-03-17] MEDS: OXYCODONE HCL IR 5 MG TAB (IMMEDIATE RELEASE) PO PRN (23:49)
[2019-03-18] MEDS: CLINDAMYCIN 600 MG in DEXTROSE 5% 50 ML IV SCH (01:36)
[2019-03-18] MEDS: HYDROmorphone INJ 0.5 MG/0.5 ML SYR IV PRN ×3 (01:36→16:05)
[2019-03-18] MEDS: OXYCODONE HCL IR 5 MG TAB (IMMEDIATE RELEASE) PO PRN ×4 (05:16→23:36)
[2019-03-18] MEDS: ACETAMINOPHEN 500 MG TAB PO SCH ×3 (05:16→21:21)
[2019-03-18 06:04] LABS: Basophils # (auto) 0.01 K/uL (0-0.2); Basophils % (auto) 0.1 %; Hematocrit (blood only) 33.2 % (37-47); Hemoglobin 10.9 g/dL (12.0-16.0); Immature Granulocytes # (auto) 0.02 K/uL (0.00-0.02); Immature Granulocytes % (auto) 0.2 %; Lymphocytes # (auto) 1.29 K/uL (1.2-3.4); Mean Corpuscular Hemoglobin 31.2 pg (25-34); Mean Corpuscular Hgb Conc 32.8 g/dL (32-36); Mean Corpuscular Volume 95.1 fL (80-100); Mean Platelet Volume 9.6 fL (7.4-10.4); Monocytes # (auto) 1.09 K/uL (0.11-0.59); Monocytes % (auto) 9.3 %; Neutrophils # (auto) 9.31 K/uL (1.4-6.5); Neutrophils % (auto) 79.4 %; Platelet Count 221 K/uL (130-400); RDW Coefficient of Variation 13.8 % (11.5-14.5); RDW Standard Deviation 47.8 fL (36.4-46.3); Red Blood Count 3.49 M/uL (4.2-5.4); White Blood Count 11.72 K/uL (4.8-10.8)
[2019-03-18 06:32] LABS: BUN Creatinine Ratio 17.2 (10-20); Calcium 8.7 mg/dl (8.5-10.1); Creatinine Clr Calc Pharmacy 44.6 ml/min; Est GFR (African American) 83.3; Est GFR (Non-African American) 71.9; Potassium 4.6 mmol/L (3.5-5.1)
--- NOTE | 2019-03-18 06:39 | Orthopedic Progress Note ---
Date of Service March 18, 2019 Assessment & Plan (1) Rotator cuff arthropathy of left shoulder: POD#1 left reverse TSA -PT/OT -Pain management -DVT prophylaxis-SCDs -D/C planning-home with PT, possibly later today as long as pain controlled and PT goes well -AM labs-hemoglobin 10.9 from 11.2 on preop labs Subjective Patient is POD #1 left reverse TSA. Having a moderate amount of pain this morning since block wearing off. Controlled with pain medication. No other complaints. Denies any chest pain, shortness of breath, dizziness, nausea, vomiting. Review of Systems Review of Systems: All systems reviewed & are unremarkable except as noted in HPI & below Physical Exam Physical Exam: Dressing to the left shoulder is clean, dry, intact. Sling in place. Fingers are mobile. Good security chief museum strength. Distally neurovascular status and sensation is intact. Constitutional: well developed and well nourished; no acute distress Results & Data Vital Signs (Past 12 Hours) Vital Signs Temp Pulse Resp BP Pulse Ox 03/18/19 02:13 36.7 C 79 14 120/70 92 03/17/19 23:12 36.7 C 62 14 123/72 96 03/17/19 21:01 36.7 C 84 16 117/72 94
--- NOTE | 2019-03-18 07:46 | Anesthesiology Progress Note ---
Date of Service March 18, 2019 Anesthesia Post Procedure Vital Signs Vital Signs: Temp Pulse Pulse Resp BP Pulse Ox 03/18/19 02:13 36.7 C 79 14 120/70 92 03/17/19 23:12 36.7 C 62 14 123/72 96 03/17/19 21:01 36.7 C 84 16 117/72 94 03/17/19 15:46 36.5 C 87 16 120/79 98 03/17/19 14:58 97 H 16 111/68 100 03/17/19 13:50 36.5 C 96 H 16 123/77 100 03/17/19 13:20 74 16 122/78 100 03/17/19 12:50 36.4 C L 84 18 112/75 98 03/17/19 12:30 36.4 C L 75 14 103/70 100 03/17/19 12:20 79 15 107/68 98 03/17/19 12:10 83 15 106/73 100 03/17/19 12:00 57 L 16 93/63 L 100 03/17/19 11:50 76 16 126/79 100 03/17/19 11:40 36.3 C L 72 16 121/82 100 03/17/19 08:42 36.6 C 79 16 130/92 96 Pain Intensity Left Shoulder: Pain Intensity: 2 Notes Mental Status: alert / awake / arousable and participated in evaluation Patient Amnestic to Procedure: Yes Nausea / Vomiting: adequately controlled Pain: adequately controlled Airway Patency, RR, SpO2: stable & adequate BP & HR: stable & adequate Hydration State: stable & adequate Neuraxial Anesthesia: sensory block is resolving Anesthetic Complications: Pt Satisfied with anesthetic care
[2019-03-18] MEDS: ASPIRIN 81 MG ECTAB PO SCH (08:54)
[2019-03-18] MEDS: FLUTICASONE PROPIONATE NA SPR 16 GM BTL SCH (08:55)
[2019-03-18] MEDS: MULTIVITAMIN TAB PO SCH (08:55)
[2019-03-18] MEDS: DOCUSATE SODIUM 100 MG CAP PO SCH ×2 (08:56→21:21)
[2019-03-18] MEDS ORDERED: CeleBREX 200 MG CAP PO SCH (09:00)
[2019-03-18] MEDS ORDERED: DiphenhydrAMINE HCL 50 MG/ML VIAL IV PRN (16:46)
[2019-03-18] MEDS: KETOROLAC TROMETHAMINE 15 MG/ML VIAL IV PRN (18:32)
[2019-03-19] MEDS: ACETAMINOPHEN 500 MG TAB PO SCH ×2 (05:49→14:06)
[2019-03-19] MEDS: KETOROLAC TROMETHAMINE 15 MG/ML VIAL IV PRN ×2 (07:57→08:42)
--- NOTE | 2019-03-19 08:23 | Orthopedic Progress Note ---
Date of Service March 19, 2019 Assessment & Plan (1) Status post total replacement of left shoulder: 63 yo female stable POD #2 s/p left reverse TSA 1. Med management 2. DVT prophylaxis- SCDs 3. PT/OT 4. D/C planning- home w/ HH vs OPPT Subjective Pt resting in bed, pain better controlled, denies complaints Physical Exam Physical Exam: Dressing intact, fingers mobile, NVI Results & Data Vital Signs (Past 12 Hours) Vital Signs Temp Pulse Resp BP Pulse Ox 03/19/19 06:13 37.0 C 84 15 134/87 95 03/18/19 23:02 37.2 C 74 14 143/81 H 92
[2019-03-19] MEDS: ASPIRIN 81 MG ECTAB PO SCH (10:21)
[2019-03-19] MEDS: FLUTICASONE PROPIONATE NA SPR 16 GM BTL SCH (10:21)
[2019-03-19] MEDS: DOCUSATE SODIUM 100 MG CAP PO SCH (10:21)
[2019-03-19] MEDS: MULTIVITAMIN TAB PO SCH (10:22)
[2019-03-19] MEDS: OXYCODONE HCL IR 5 MG TAB (IMMEDIATE RELEASE) PO PRN (13:22)
--- NOTE | 2019-03-21 11:50 | Discharge Summary ---
Date of Service March 21, 2019 Admission HPI Per Admitting Provider 63 year old female with PMHx significant for migraines and depression, as well as mild asthma presents with complaint of ongoing left shoulder pain. She previously has had rotator cuff repair on the left shoulder with a retear, followed by open rotator cuff repair and subscapularis repair. She had done well, however has had ongoing pain. She has failed conservative measures including physical therapy and NSAIDs. She has had cortisone injections in the past with minimal relief. Radiographs consistent with rotator cuff arthropathy. She would like to proceed with surgical intervention. Patient denies headaches, sweats, fevers, chills, double vision, blurred vision, cough, sore throat, dysphagia, chest pain, sob, wheezing, n/v/d/c, numbness, tingling, fatigue, urinary symptoms, mood disorders. ROS positive for left shoulder pain and stiffness. Admission Exam Per Admitting Provider Physical Exam Constitutional: well developed and well nourished; no acute distress Eyes: PERRL, conjunctivae normal, anicteric sclerae ENMT: external ear and nose normal, oropharynx normal Neck: trachea midline, no thyromegaly Respiratory: normal respiratory effort, lungs clear to auscultation Cardiovascular: RRR, no murmur, no edema Musculoskeletal: Left Shoulder-Mild diffuse tenderness. Decreased ROM in all directions, weakness 3/5 to supraspinatus and infraspinatus. Positive impingement signs. Skin: no rashes, warm and dry Neurologic: patellar DTR's 2+ bilat, sensation intact Psychiatric: A+Ox3, euthymic affect Principal Diagnosis Left rotator cuff arthropathy Discharge Exam Dressing intact, fingers mobile, NVI Discharge Data Allergies Allergy/AdvReac Type Severity Reaction Status Date / Time Penicillins Allergy Intermediate localized Verified 03/17/19 08:17 swelling (from PCN containing cream) latex Allergy Rash, Verified 03/17/19 08:17 Blisters CATS Allergy Intermediate swelling Uncoded 03/17/19 08:17 Consultations 03/17/19 13:03 Consult Case Management - Discharge Planning Routine Procedures Performed Operation Date: 03/17/19 09:55 Actual Procedures p Left Reverse Total Shoulder Arthroplasty(Left) - Mahesh Dorsey MD Ordered Studies 03/17/19 05:00 US - OR guided needle placemen Routine Hospital Course (1) Rotator cuff arthropathy of left shoulder: Patient was admitted on the above-noted date and had her noted surgery. She tolerated the procedure well. On her first postoperative day, she was running stable. Signs remained stable and she was afebrile. Her sensory block that was applied prior to surgery was wearing off and she was having pain. Pain medications were administered and were helping. Hemoglobin was 10.9. She was started on PT and OT protocols and continued on DVT prophylaxis and pain management. By her second postoperative day, she continued to remain stable. Vital signs are stable. Pain was controlled. Dressings were intact. Neurovascular is intact. She was progressing with her PT and OT protocols and was felt to be discharged home. Total Time Total Time Spent Total Time Spent (In Minutes): 1 Discharge Plan Discharge Items Patient Disposition: Home - Self-Care Reason For Visit: Primary Osteoarthritis, Left Shoulder Discharge Diagnosis: Left shoulder Rotator cuff arthropathy Activity: Per Instructions section Non-emergency contact: Surgeon Call non-emergency contact if: your pain is not controlled, your pain is worsening, your pain is concerning for you, you have a fever, your temperature is above 101 and your wound has increased redness Follow-up/Referrals: Breann Valle DO [Primary Care Provider] - Diet: Regular Addtl Attending Provider Instructions: ACTIVITY RECOMMENDATIONS: SELF CARE INSTRUCTIONS AFTER TOTAL SHOULDER ARTHROPLASTY REVERSE A. You may do daily exercises as taught in physical therapy while in hospital. No lifting with the operative arm. B. You are to wear your sling/immobilizer at all times EXCEPT when performing your daily exercises and for hygiene purposes. C. You may perform dry, daily dressing changes. Please keep your incision covered. You may shower 48 hours after surgery. Do not apply soap or any ointment/lotions directly over incision. Do not soak incision in bath tub/swimming pool. D. You may use ice as needed to operative shoulder. E. You should start PT within 2-3 days post discharge SPECIAL CARE INSTRUCTIONS: VERY IMPORTANT TO READ AND REVIEW A. There are a few signs you need to watch for after you are home. Call [facility] at [phone] if you experience any of the followin. Increased severe shoulder pain. Some pain is expected especially when you exercise. 2. Increased swelling in you shoulder or arm; pain or swelling in either upper extremity. 3. Any fluid drainage from the incision. 4. Shortness of breath or chest pain. B. Please call [facility] at [phone] if you have any questions or concerns about your operation or recovery. C. Call your physician if: 1. Temperature is greater than 101 degrees (F). 2. Pain is not relieved by prescribed pain medications. 3. Increase drainage or redness from incision. 4. Unanswered questions or concerns. FOLLOW UP VISIT: Please call [facility] at [phone] to schedule a follow up appointment with Dr. Dorsey or his PA in 12-14 days from your surgery date. Pending Studies at Discharge: No Stand-Alone Forms: My [facility] [employer], Opioid Pain Management Medications and DC Order Prescriptions: New celecoxib [Celebrex] 200 mg Capsule 200 mg PO BID Qty: 60 RF: 0 acetaminophen [Tylenol Extra Strength] 500 mg Tablet 1,000 mg PO Q8 Qty: 60 RF: 0 oxycodone 5 mg Tablet 5 - 10 mg PO .Q4H-6H MDD 6 PRN (Reason: pain) Qty: 30 RF: 0 Continued triamcinolone acetonide 0.1 % Cream 1 applic TOPICAL DIRECTED PRN (Reason: Skin Irritation) RF: 0 fluticasone propionate [Flonase Allergy Relief] 50 mcg/actuation Kaufman,Suspension 2 spray INTRANASAL DAILY RF: 0 methocarbamol 1 tab PO UD PRN (Reason: Muscle Spasm) RF: 0 Discharge Orders: Discharge Order (Routine); Ordered 03/19/19 Ordered By: Major Negro/Other Patient Handouts: DVT Prevent Admission Data Admit Date/Time: 03/17/19 11:41 Attending Provider: Mahesh Dorsey Admit Provider: Mahesh Dorsey Primary Care Provider: Breann Valle Other Interventions: Discharge Summary Assessment (RN) Last Done: 03/19/19 13:55 DC Date/Time DO NOT enter until pt leaves facility: 03/19/19 14:23
== END 2019-03-19 14:23 | disposition home or self-care (01) | DRG 483 ==
LOC: ASU 07:49 → 3E 11:41
DX: F32.9 Major depressive disorder, single episode, unspecified; J45.909 Unspecified asthma, uncomplicated; Z83.3 Family history of diabetes mellitus; M75.82 Other shoulder lesions, left shoulder; Z91.040 Latex allergy status; M19.012 Primary osteoarthritis, left shoulder; Z88.0 Allergy status to penicillin

== ENCOUNTER 2022-05-19 12:27 | Observation (INO) ==
[2022-05-19] MEDS ORDERED: FAMOTIDINE 20 MG in SYRINGE 3 ML IV STA (12:58)
[2022-05-19] MEDS ORDERED: ASPIRIN CHEW 324 MG PO STA (12:58)
[2022-05-19 13:15] LABS: Basophils # (auto) 0.05 K/uL (0-0.2); Basophils % (auto) 0.6 %; Eosinophils # (auto) 0.08 K/uL (0-0.50); Hematocrit (blood only) 44.4 % (34.1-44.9); Hemoglobin 14.4 g/dl (12.0-16.0); Immature Granulocytes # (auto) 0.02 K/uL (0.00-0.02); Immature Granulocytes % (auto) 0.3 %; Lymphocytes # (auto) 2.82 K/uL (1.2-3.4); Lymphocytes % (auto) 35.4 %; Mean Corpuscular Hemoglobin 31.6 pg (25.0-34.0); Mean Corpuscular Hgb Conc 32.4 g/dL (32.0-36.0); Mean Corpuscular Volume 97.6 fL (80.0-100.0); Monocytes # (auto) 0.62 K/uL (0.24-0.82); Monocytes % (auto) 7.8 %; Neutrophils # (auto) 4.37 K/uL (1.4-6.5); Neutrophils % (auto) 54.9 %; Platelet Count 293 K/uL (130-400); RDW Coefficient of Variation 13.2 % (11.5-14.5); RDW Standard Deviation 47.6 fL (36.4-46.3); Red Blood Count 4.55 M/uL (3.93-5.22); White Blood Count 7.96 K/ul (4.8-10.8)
--- NOTE | 2022-05-19 13:27 | XRay Report ---
XR chest 1V portable CLINICAL HISTORY: Chest Pain TECHNIQUE: Single frontal radiograph of the chest was obtained. Comparison: Comparison is made to rib series 04/23/2022 FINDINGS: Left reverse shoulder arthroplasty is seen. Calcified aortic knob is seen. The lungs are clear. No ev idence of pleural effusion or pneumothorax. IMPRESSION: No acute chest disease. ACT 112: Negative or not required by law. Electronically signed by: Oswaldo Hicks M.D. 05/19/2022 1:26 PM
[2022-05-19 13:51] LABS: Troponin I High Sensitivity 10.5 pg/ml (0-14)
[2022-05-19 13:52] LABS: Albumin Globulin Ratio 1.4 (0.9-2); Albumin Level 4.6 gm/dl (3.4-5.0); BUN Creatinine Ratio 18.4 (10-20); Bilirubin,Total 0.4 mg/dl (0.2-1.0); Calcium 9.2 mg/dl (8.5-10.1); Creatinine Clr Calc Pharmacy 42.6 ml/min; Est GFR (African American) 80.5 ml/min; Est GFR (Non-African American) 69.4 ml/min; Globulin 3.2 gm/dl (2.5-4.0); Potassium 4.2 mmol/L (3.5-5.1); Total Protein 7.8 gm/dl (6.0-8.3)
[2022-05-19] MEDS ORDERED: LORazepam 1 MG TAB SL STA (14:09)
[2022-05-19] MEDS ORDERED: Heparin IV Adult Wt-Based Low-Dose WITH Bolus Protocol STA (15:52)
[2022-05-19] MEDS ORDERED: HEPARIN SOD (PORCINE) 1000 UNIT/ML IV ONE ×2 (16:07→16:30)
[2022-05-19] MEDS ORDERED: HEPARIN SODIUM/DEXTROSE 25,000 UNITS/500 ML BAG IV SCH (16:15)
--- NOTE | 2022-05-19 17:12 | Electrocardiogram Report ---
Test Reason : Blood Pressure : / mmHG Vent. Rate : 102 BPM Atrial Rate : 102 BPM P-R Int : 132 ms QRS Dur : 076 ms QT Int : 344 ms P-R-T Axes : 070 056 053 degrees QTc Int : 448 ms Poor data quality, interpretation may be adversely affected Sinus tachycardia Otherwise normal ECG When compared with ECG of 11-FEB-2019 09:48, No significant change was found Confirmed by David Brooks ([id number]) on 05/19/2022 5:11:58 PM Referred By: REFERRED SELF Confirmed By:David Brooks
[2022-05-19 17:26] LABS: Partial Thromboplastin Ratio 0.9; Prothrombin Time 10.3 Seconds (9.0-12.0)
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
[2022-05-20 00:07] LABS: Partial Thromboplastin Ratio 1.2; Partial Thromboplastin Time 33.2 Seconds (21.0-31.0)
[2022-05-20] MEDS ORDERED: HEPARIN IV BOLUS 2,000 UNITS in SYRINGE 0 ML IV ONE (00:30)
[2022-05-20 07:20] LABS: Hematocrit (blood only) 40.1 % (34.1-44.9); Hemoglobin 13.3 g/dl (12.0-16.0); Mean Corpuscular Hemoglobin 31.1 pg (25.0-34.0); Mean Corpuscular Hgb Conc 33.2 g/dL (32.0-36.0); Mean Corpuscular Volume 93.9 fL (80.0-100.0); Mean Platelet Volume 9.5 fL (9.4-12.3); Platelet Count 270 K/uL (130-400); RDW Coefficient of Variation 13.2 % (11.5-14.5); Red Blood Count 4.27 M/uL (3.93-5.22); White Blood Count 6.19 K/ul (4.8-10.8)
[2022-05-20 07:44] LABS: Partial Thromboplastin Ratio 1.7
[2022-05-20 07:49] LABS: Partial Thromboplastin Time 48.1 Seconds (21.0-31.0)
[2022-05-20 08:04] LABS: BUN Creatinine Ratio 22.1 (10-20); Calcium 8.8 mg/dl (8.5-10.1); Chol HDL Ratio 2.4 (0-5); Creatinine Clr Calc Pharmacy 48.1 ml/min; Est GFR (African American) 93.3 ml/min; Est GFR (Non-African American) 80.5 ml/min; Potassium 4.3 mmol/L (3.5-5.1)
[2022-05-20] MEDS ORDERED: ACETAMINOPHEN 325 MG TAB PO PRN (08:53)
[2022-05-20] MEDS ORDERED: ASPIRIN 81 MG ECTAB PO SCH (09:00)
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
--- NOTE | 2022-05-20 16:39 | Electrocardiogram Report ---
Test Reason : Blood Pressure : / mmHG Vent. Rate : 071 BPM Atrial Rate : 071 BPM P-R Int : 130 ms QRS Dur : 072 ms QT Int : 394 ms P-R-T Axes : 038 060 068 degrees QTc Int : 428 ms Normal sinus rhythm Normal ECG When compared with ECG of 19-MAY-2022 12:31, No significant change was found Confirmed by David Brooks ([id number]) on 05/20/2022 4:39:16 PM Referred By: REFERRED SELF Confirmed By:David Brooks
--- NOTE | 2022-05-22 05:58 | Emergency Department Note ---
ED Provider Note CHIEF COMPLAINT: [] HISTORY OF PRESENT ILLNESS: This [] patient presents to the emergency department [] REVIEW OF SYSTEMS: A review of systems was performed with positives and pertinent negatives listed in the history of present illness. 10 systems were reviewed and are otherwise negative. ALLERGIES: see below MEDICATIONS: see below PMH: see below SOCIAL HISTORY: see below DDx: [] PHYSICAL EXAM: Vital signs reviewed. General: Well-appearing, in no significant distress. HEENT: No scleral icterus, PERRLA, neck supple. Atraumatic. Cardiovascular: Regular rate and rhythm, no extra sounds. Pulmonary: Clear to auscultation bilaterally, normal work of breathing. Abdomen: Soft, nontender, nondistended, positive bowel sounds. Musculoskeletal: Atraumatic, no peripheral edema. Neurologic: Patient awake alert and oriented x 3, speech is clear Skin: Warm, dry, no rash EMERGENCY DEPARTMENT COURSE/MDM: [] MONITORING: An order for cardiac monitoring was placed and the patient is noted to be in a [] at [] beats per minute. 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 Surgical History History of appendectomy History of bunionectomy History of colonoscopy History of surgery CYSTIC HYGROMA REMOVAL History of tonsillectomy History of wisdom tooth extraction Hx of repair of left rotator cuff Hx of repair of right rotator cuff Right shoulder arthroscopy with RCR: 01/12/14: Grade view 1, MAC#3, ETT 7.0 at [facility] Status post tendon repair LEFT SHOULDER Family History Uncle Family history of diabetes mellitus Social History Smoking Status: Never smoker Second Hand Exposure: Yes; Hx Alcohol Use: Yes Alcohol type: wine and hard liquor Hx Substance Use: No Preferred Language: Hebrew Communication Ability: Effective Steam Fitter Required: No Beliefs That Will Affect Care: None Current Living Situation: Family Current Living Situation Comment: Son and grandson Feels Safe at Home: Yes Assistive Devices: None Allergies Allergies Allergy/AdvReac Type Severity Reaction Status Date / Time Penicillins Allergy Intermediate localized Verified 05/19/22 15:58 swelling (from PCN containing cream) latex Allergy Rash, Verified 05/19/22 15:58 Blisters CATS Allergy Intermediate swelling Uncoded 05/19/22 15:58 Home Meds Home Medications Medication Instructions Recorded Confirmed cyclobenzaprine 10 mg tablet 10 mg PO Q12H PRN Spasms 05/19/22 05/19/22 Previous Rx's Medication Instructions Recorded acetaminophen 500 mg tablet 1,000 mg PO Q8 #60 tabs 03/18/19 (Tylenol Extra Strength) Results & Data (ED) Laboratory Data Result diagrams: 05/20/22 07:02 05/20/22 07:02 Lab Results 05/19/22 05/19/22 05/19/22 Range/Units 12:35 12:35 12:35 WBC 7.96 (4.8-10.8) K/ul RBC 4.55 (3.93-5.22) M/uL Hgb 14.4 (12.0-16.0) g/dl Hct 44.4 (34.1-44.9) % MCV 97.6 (80.0-100.0) fL MCH 31.6 (25.0-34.0) pg MCHC 32.4 (32.0-36.0) g/dL RDW Std Deviation 47.6 H (36.4-46.3) fL RDW Coeff of Lou 13.2 (11.5-14.5) % Plt Count 293 (130-400) K/uL MPV 10.0 (9.4-12.3) fL Immature Gran % (Auto) 0.3 % Neut % (Auto) 54.9 % Lymph % (Auto) 35.4 % Rosebud % (Auto) 7.8 % Eos % (Auto) 1.0 % Baso % (Auto) 0.6 % Neut # (Auto) 4.37 (1.4-6.5) K/uL Lymph # (Auto) 2.82 (1.2-3.4) K/uL Rosebud # (Auto) 0.62 (0.24-0.82) K/uL Eos # (Auto) 0.08 (0-0.50) K/uL Baso # (Auto) 0.05 (0-0.2) K/uL Immature Gran # (Auto) 0.02 (0.00-0.02) K/uL PT Cancelled INR Cancelled APTT Cancelled PTT Ratio Cancelled Sodium 139 (136-145) mmol/L Potassium 4.2 (3.5-5.1) mmol/L Chloride 103 (98-107) mmol/L Carbon Dioxide 25 (21-32) mmol/L Anion Gap 11 (3-11) BUN 16 (6-23) mg/dl Creatinine 0.87 (0.6-1.2) mg/dl Est Cr Clr Drug Dosing 42.6 ml/min Est GFR ( Amer) 80.5 ml/min Est GFR (Non-Af Amer) 69.4 ml/min BUN/Creatinine Ratio 18.4 (10-20) Glucose 153 H (70-99(Fasting)) mg/dl Calcium 9.2 (8.5-10.1) mg/dl Total Bilirubin 0.4 (0.2-1.0) mg/dl AST 37 (13-39) U/L ALT 28 (7-52) U/L Alkaline Phosphatase 76 (34-104) U/L Troponin I High Sens 10.5 (0-14) pg/ml Total Protein 7.8 (6.0-8.3) gm/dl Albumin 4.6 (3.4-5.0) gm/dl Globulin 3.2 (2.5-4.0) gm/dl Albumin/Globulin Ratio 1.4 (0.9-2) Lipase 49 (11-82) U/L SARS-CoV-2, RNA, NAAT (NEGATIVE) 05/19/22 05/19/22 05/19/22 Range/Units 13:30 14:58 16:45 WBC (4.8-10.8) K/ul RBC (3.93-5.22) M/uL Hgb (12.0-16.0) g/dl Hct (34.1-44.9) % MCV (80.0-100.0) fL MCH (25.0-34.0) pg MCHC (32.0-36.0) g/dL RDW Std Deviation (36.4-46.3) fL RDW Coeff of Lou (11.5-14.5) % Plt Count (130-400) K/uL MPV (9.4-12.3) fL Immature Gran % (Auto) % Neut % (Auto) % Lymph % (Auto) % Rosebud % (Auto) % Eos % (Auto) % Baso % (Auto) % Neut # (Auto) (1.4-6.5) K/uL Lymph # (Auto) (1.2-3.4) K/uL Rosebud # (Auto) (0.24-0.82) K/uL Eos # (Auto) (0-0.50) K/uL Baso # (Auto) (0-0.2) K/uL Immature Gran # (Auto) (0.00-0.02) K/uL PT 10.3 INR 1.0 APTT 25.0 PTT Ratio 0.9 Sodium (136-145) mmol/L Potassium (3.5-5.1) mmol/L Chloride (98-107) mmol/L Carbon Dioxide (21-32) mmol/L Anion Gap (3-11) BUN (6-23) mg/dl Creatinine (0.6-1.2) mg/dl Est Cr Clr Drug Dosing ml/min Est GFR ( Amer) ml/min Est GFR (Non-Af Amer) ml/min BUN/Creatinine Ratio (10-20) Glucose (70-99(Fasting)) mg/dl Calcium (8.5-10.1) mg/dl Total Bilirubin (0.2-1.0) mg/dl AST (13-39) U/L ALT (7-52) U/L Alkaline Phosphatase (34-104) U/L Troponin I High Sens 34.1 H D (0-14) pg/ml Total Protein (6.0-8.3) gm/dl Albumin (3.4-5.0) gm/dl Globulin (2.5-4.0) gm/dl Albumin/Globulin Ratio (0.9-2) Lipase (11-82) U/L SARS-CoV-2, RNA, NAAT NEGATIVE (NEGATIVE) Administered Medications Discontinued Medications Aspirin (Aspirin Chew 324 Mg) 324 mg PO NOW STA Stop: 05/19/22 12:59 Last Admin: 05/19/22 13:52 Dose: Not Given Documented By: [id number] Aspirin (Aspirin 81 Mg Ectab) 81 mg PO DAILY [facility] Stop: 06/19/22 08:59 Last Admin: 05/20/22 15:29 Dose: 81 mg Documented By: [id number] Heparin Sodium (Porcine) (Heparin Sod (Porcine) 1000 Unit/Ml) 3,000 units IV NOW ONE Stop: 05/19/22 16:31 Last Admin: 05/19/22 17:29 Dose: 3,000 units Documented By: [id number] Co-signed By: ERMA Famotidine 20 mg/ Syringe 5 mls @ 2.5 mls/min IV NOW STA Stop: 05/19/22 12:59 Last Admin: 05/19/22 13:52 Dose: 2.5 mls/min Documented By: [id number] Heparin Sodium/Dextrose (Heparin Sodium/Dextrose) 25,000 units in 500 mls @ 13 mls/hr IV .Q24H [facility]; Protocol Stop: 06/18/22 16:14 Last Titration: 05/20/22 15:26 Dose: 0 units/hr, 0 mls/hr Documented By: [id number] Co-signed By: ALFREDO Titration: 05/20/22 10:33 Dose: 650 units/hr, 13 mls/hr Documented By: [id number] Co-signed By: ALFREDO Titration: 05/20/22 09:00 Dose: 0 units/hr, 0 mls/hr Documented By: [id number] Co-signed By: ALFREDO Titration: 05/20/22 06:55 Dose: 650 units/hr, 13 mls/hr Documented By: [id number] Co-signed By: JERICA Titration: 05/20/22 00:55 Dose: 650 units/hr, 13 mls/hr Documented By: JERICA Co-signed By: MANUELITO Admin: 05/19/22 17:29 Dose: 550 units/hr, 11 mls/hr Documented By: [id number] Co-signed By: ERMA Heparin Sodium (Porcine) 2,000 (units/ Syringe) 2 mls @ 10 mls/min IV 0030 ONE Stop: 05/20/22 00:31 Last Admin: 05/20/22 00:55 Dose: 10 mls/min Documented By: JERICA Co-signed By: MANUELITO Lorazepam (Lorazepam 1 Mg Tab) 0.5 mg SL NOW STA Stop: 05/19/22 14:10 Last Admin: 05/19/22 14:14 Dose: 0.5 mg Documented By: [id number] Discharge Plan Visit Data Chief Complaint: Chest Pain Stated Complaint: CHEST PAIN ED Provider: Chary Melvin Patient Disposition: Admitted As Inpatient Discharge Instructions Interventions: ED Discharge Assessment Last Done: 05/19/22 22:24
== END 2022-05-20 17:13 | disposition home or self-care (01) ==
LOC: EDINP 12:27 → ED 12:27 → 2E 22:24

== ENCOUNTER 2023-03-23 07:57 | Observation (INO) ==
--- NOTE | 2023-02-09 12:49 | PAT Medication Instructions ---
Medication Instructions Date of Service February 09, 2023 Home Medications Medication Instructions Recorded diazepam 5 mg tablet (Valium) 5 mg PO Q6H PRN anxiety #14 tabs 10/16/22 diazepam 5 mg tablet (Valium) 5 mg PO Q6H PRN anxiety ashwagandha root extract 500 mg capsule 500 mg PO HS meclizine 25 mg tablet 25 mg PO TID PRN Vertigo tramadol 50 mg tablet 50 mg PO UD PRN Pain STOP taking 2 weeks before surgery ashwagandha root extract 500 mg capsule 500 mg PO HS Take morning of surgery With a small sip of water, OTHERWISE NOTHING TO EAT OR DRINK AFTER MIDNIGHT: diazepam 5 mg tablet (Valium) 5 mg PO Q6H PRN anxiety (if needed) meclizine 25 mg tablet 25 mg PO TID PRN Vertigo (if needed) tramadol 50 mg tablet 50 mg PO UD PRN Pain (if needed) Take evening before surgery diazepam 5 mg tablet (Valium) 5 mg PO Q6H PRN anxiety (if needed) meclizine 25 mg tablet 25 mg PO TID PRN Vertigo (if needed) tramadol 50 mg tablet 50 mg PO UD PRN Pain (if needed) Other Notes If you have any questions please call us at [phone] or [phone] or [phone] or [phone]
--- NOTE | 2023-02-17 09:41 | Anesthesiology Consultation ---
Date of Service February 17, 2023 Assessment & Plan (1) Encounter for pre-operative examination: - discomfort with pressure of BP assessment, denies skin sensitivity. Automatic reading was terminated upon patient demonstrating discomfort with cuff pressure on left arm. She states that this has been chronic and is agreeable with BP assessment expresses is always uncomfortable. I inquired as to arm preference and she states left arm. BP 140/82 left arm with manual cuff. She requests pre- op does manual BP readings if possible. She expresses automatic is fine in OR as she will not be aware of pressure. Outpatient joint assessment: Patient is currently scheduled for inpatient pathway. If re-evaluated and patient/surgeon requests outpatient pathway, patient is not recommended candidate for outpatient joint program from anesthesia standpoint. Chart Review Chart Review: Acceptable Risk for Surgery and Patient seen in Pre Admission Testing Teaching & Discussion Pre-Anesthesia Teaching/Discussion Notes: Instructed NPO after midnight before surgery, except medications with 15 cc of water. Medication instructions provided according to the PAT guidelines. History Surgery Operation Date: 03/23/23 08:00 Proposed Procedures p Right Total Shoulder Arthroplasty Olivier - Terence Lamb, Height/Weight Height: 4 ft 8.75 in Weight: 53.8 kg Allergies Allergy/AdvReac Type Severity Reaction Status Date / Time latex Allergy Severe Rash, Verified 02/09/23 11:01 Blisters Penicillins Allergy Intermediate localized Verified 02/09/23 11:00 swelling (from PCN containing cream) CATS Allergy Intermediate SOB/cough Uncoded 02/09/23 11:01 Medications Home Medications Medication Instructions Recorded Confirmed Last Taken diazepam 5 mg tablet (Valium) 5 mg PO Q6H PRN anxiety #14 tabs 10/16/22 02/09/23 Unknown ashwagandha root extract 500 mg 500 mg PO HS 02/09/23 02/09/23 Unknown capsule meclizine 25 mg tablet 25 mg PO TID PRN Vertigo 02/09/23 02/09/23 Unknown tramadol 50 mg tablet 50 mg PO UD PRN Pain 02/09/23 02/09/23 Unknown Past Medical History Medical History (Updated 02/17/23 @ 11:44 by Franci Polo PA-C) Anxiety Depression GERD (gastroesophageal reflux disease) rare Migraine 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 Vertigo chronic, notes increased frequency and severity now associated with vomiting over past 8 months which she attributes to stress-denies recent change or worsening, states was reviewed with PCP at last visit, [facility] PCP noted vertigo has been stable Patient denies h/o stroke, seizures, heart attack, heart failure, DM, HTN, blood clots/DVTs or blood transfusions. Patient states she completed second lice treatment 02/11/23, acceptable to proceed per infection control. Exercise / Class Metabolic Activity II 4-5 Yardwork/Stairs/Walk up hill (denies chest discomfort or shortness of breath with 1 FOS) Past Family History Family History Uncle Family history of diabetes mellitus Other No family history of adverse response to anesthesia Past Surgical History Surgical History H/O shoulder replacement Left Reverse TSA ([facility] 2018) History of appendectomy History of bunionectomy History of colonoscopy History of surgery CYSTIC HYGROMA REMOVAL History of tonsillectomy History of wisdom tooth extraction Hx of repair of left rotator cuff Hx of repair of right rotator cuff Right shoulder arthroscopy with RCR: 01/12/14: Grade view 1, MAC#3, ETT 7.0 [place] [facility] [place]P hammer toe correction right foot Status post tendon repair LEFT SHOULDER Past Anesthesia History No Family Hx of Anesthesia Complications and Other (awareness with previous surgeries) History of PONV No Hx of PONV and Hx of Motion Sickness Social History Smoking Status: Never smoker Do You Dip or Chew Tobacco: No Hx Alcohol Use: Yes Alcohol type: wine and hard liquor alcohol intake frequency: a few times a month Hx Substance Use: No substance use type: does not use Review of Systems Snoring, denies witnessed apneas. Patient denies chest pain, shortness of breath, dyspnea on exertion, fever, chills, cough, wheezing, or palpitations. Physical Exam Vital Signs Vitals BP 140/82 manual P 79 TEMP 97.8 SP02 94% on RA RESP 18 Physical Patient resting comfortably in chair in no acute distress, alert and oriented, responding appropriately throughout visit Full cervical extension range of motion without pain TMD 3.5 finger breadths Mallampati Score 2 Dentition: several missing teeth, denies chipped or loose teeth, caps/crowns, implants or bridges Lungs: normal respiratory effort. Good air movement, clear throughout to auscultation, no adventitious breath sounds Cardiac: regular rate and rhythm, no murmurs noted Carotid arteries: negative bruit bilat Lab Results Anesthesia Preop Results Results Anesthesia Widget: WBC 4.63 K/ul (4.8-10.8) L 02/17/23 Hgb 12.3 g/dl (12.0-16.0) 02/17/23 Hct 38.1 % (37.0-47.0) 02/17/23 Plt 251 K/uL (130-400) 02/17/23 Na 140 mmol/L (136-145) 02/17/23 K 4.1 mmol/L (3.5-5.1) 02/17/23 Cl 107 mmol/L (98-107) 02/17/23 CO2 28 mmol/L (21-32) 02/17/23 BUN 14 mg/dl (6-23) 02/17/23 Creat 0.71 mg/dl (0.6-1.2) 02/17/23 Glucose Level 95 mg/dl (70-99(Fasting)) 02/17/23 PT 10.6 Seconds (9.0-12.0) 02/17/23 PTT 26.2 Seconds (21.0-31.0) 02/17/23 INR 1.0 (0.9-1.1) 02/17/23 Blood Type O Positive 02/17/23 Antibody Screen NEGATIVE 02/17/23 Testing Electrocardiogram Date: 02/17/23 NSR, rate 72 bpm Chest X-Ray Date: 02/17/23 No acute process Echocardiogram Date: 05/19/22 EF 60-65% Mild cLVH No segmental LV wall motion abnormalities Grade I diastolic dysfunction Aortic valve sclerosis mild, without significant aortic valvular stenosis Mild MAC without stenosis or regurgitation Stress Test Date: 05/19/22 Nonischemic stress echocardiogram Below average exercise tolerance for age Chest pain was not reproduced at peak HR METS 5 MPHR 116% Cervical Spine Date: 02/17/23 x-ray 1. No fractures within the cervical spine. 2. Mild anterolisthesis within the upper to mid cervical spine which remains intact throughout flexion and extension. 3. The C1-C2 interval is preserved Other Testing Abdomen pelvis CT 10/16/22 1. No hydronephrosis. 3 mm right pelvic calcification. This likely reflects a phlebolith although a nonobstructing distal right ureteral calculus could appear similar. 2. No bowel obstruction. No bowel wall thickening on unenhanced exam. Moderate amount of stool within the colon.
--- NOTE | 2023-03-19 13:04 | History & Physical Report ---
Date of Service March 19, 2023 Assessment & Plan (1) Rotator cuff arthropathy: We will proceed with a right reverse shoulder arthroplasty. Postoperatively she will be placed in an arm sling and kept overnight for postop medical management. She plans to go to [place] physical therapy upon discharge. History of Present Illness Chief Complaint: Cuff tear arthropathy of the right shoulder. Primary Care Provider: Breann Valle DO Judy is a pleasant 67-year-old female who has been dealing with chronic bilateral shoulder pain. She has had 2 failed rotator cuff repairs about 10 years ago. She then had a left reverse shoulder arthroplasty done by Dr. Dorsey several years ago and has done fairly well with that. She is now dealing with debilitating right shoulder pain. She has trouble doing anything away from her body or up overhead. X-rays and clinical examination have been diagnostic for cuff tear arthropathy of the right shoulder. After failing conservative treatment, she has elected proceed with a right reverse shoulder arthroplasty. Allergies Allergy/AdvReac Type Severity Reaction Status Date / Time latex Allergy Severe Rash, Verified 02/09/23 11:01 Blisters Penicillins Allergy Intermediate localized Verified 02/09/23 11:00 swelling (from PCN containing cream) CATS Allergy Intermediate SOB/cough Uncoded 02/09/23 11:01 Home Medications Medication Instructions Recorded Confirmed Type diazepam 5 mg tablet (Valium) 5 mg PO Q6H PRN anxiety #14 tabs 10/16/22 02/09/23 Rx ashwagandha root extract 500 mg 500 mg PO HS 02/09/23 02/09/23 History capsule meclizine 25 mg tablet 25 mg PO TID PRN Vertigo 02/09/23 02/09/23 History tramadol 50 mg tablet 50 mg PO UD PRN Pain 02/09/23 02/09/23 History Past Med/Surg History Medical History Anxiety Depression GERD (gastroesophageal reflux disease) rare Migraine 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 Vertigo chronic, notes increased frequency and severity now associated with vomiting over past 8 months which she attributes to stress-denies recent change or worsening, states was reviewed with PCP at last visit, S PCP noted vertigo has been stable Surgical History H/O shoulder replacement Left Reverse TSA ([facility] 2019) History of appendectomy History of bunionectomy History of colonoscopy History of surgery CYSTIC HYGROMA REMOVAL History of tonsillectomy History of wisdom tooth extraction Hx of repair of left rotator cuff Hx of repair of right rotator cuff Right shoulder arthroscopy with RCR: 01/12/14: Grade view 1, MAC#3, ETT 7.0 at [facility] S/P hammer toe correction right foot Status post tendon repair LEFT SHOULDER Family History Uncle Family history of diabetes mellitus Other No family history of adverse response to anesthesia Social History Smoking Status: Never smoker Second Hand Exposure: Yes; Do You Dip or Chew Tobacco: No; Hx Alcohol Use: Yes Alcohol type: wine and hard liquor Hx Substance Use: No Preferred Language: Romanian Communication Ability: Effective Traveling Passenger Agent Required: No Beliefs That Will Affect Care: None Current Living Situation: Family Current Living Situation Comment: Son and grandson Feels Safe at Home: Yes Assistive Devices: Glasses Review of Systems All systems reviewed & are unremarkable except as noted in HPI & below. Physical Exam On physical examination the right shoulder, she is about 120 degrees forward elevation 120 degrees of abduction. She has 3/5 muscle strength throughout.. Constitutional WD/WN, vitals as above Eyes PERRL, conjunctivae normal, anicteric sclerae ENMT external ear and nose normal, oropharynx normal Neck trachea midline, no thyromegaly Respiratory normal respiratory effort, lungs clear to auscultation Cardiovascular RRR, no murmur, no edema Gastrointestinal (Abdomen) normal bowel sounds, soft, nontender, no hepatosplenomegaly Skin no rashes, warm and dry Psychiatric A+Ox3, euthymic affect Results & Data Results & Data Laboratory Results . Diagnostic Findings X-rays of the right shoulder show signs of cuff tear arthropathy with superior migration of the humeral head on the glenoid. There is some thinning of the acromion.. PG Care Time/CCT Total # of Minutes Spent Total Time Spent with Patient: Total time spent is greater than 50% in coordination of care (as documented) at patient's floor/unit and/or counseling patient: Coding Level of Care Code None Diagnoses Rotator cuff arthropathy M12.819
[~2023-03-23 07:57] MED LIST changes: +BUPIVACAINE 0.5 % 5 MG/1 ML PF 10ML VIAL ONE; -CLINDAMYCIN 600 MG/54 ML BAG IV SCH; -CeleBREX 200 MG CAP PO SCH; +GABAPENTIN 300 MG CAP PO SCH; -GABAPENTIN 600 MG DOSE PO SCH; +LR 60ML/HR IV SCH; +ORTHO JOINT MIX INFIL SCH; -ROPIVACAINE 0.5% 5 MG/ML 30 ML VIAL ONE; +ceFAZolin 2000MG 2,000 MG/15 ML SYR IV SCH
--- NOTE | 2023-03-23 09:20 | History & Physical Bridge Note ---
Date of Service March 23, 2023 History & Physical Bridge Note I have examined the patient, reviewed the History & Physical and in the interval since the performance of the History & Physical I have noted the following changes of clinical significance: no changes noted
[2023-03-23] MEDS ORDERED: ORTHO JOINT ANESTHETIC ONE (09:48)
[2023-03-23] MEDS ORDERED: LIDOCAINE 2% 2 ML VIAL/AMP(20MG/ML) INFIL ONE (09:55)
[2023-03-23] MEDS ORDERED: PROPOFOL IV EMULSION 10 MG/ML 20 ML VIAL IV ONE (09:55)
[2023-03-23] MEDS ORDERED: fentaNYL citrate PF 100 MCG/2 ML VIAL ONE (09:55)
[2023-03-23] MEDS ORDERED: MIDAZOLAM HCL 1 MG/ML 2ML VIAL ONE (09:55)
[2023-03-23] MEDS ORDERED: ROCURONIUM BROMIDE 10 MG/ML 5 ML VIAL IV ONE (09:55)
[2023-03-23] MEDS ORDERED: ePHEDrine sulfate 50 MG/ML AMP IV PRN (10:02)
[2023-03-23] MEDS ORDERED: PROMETHAZINE HCL 12.5 MG in SODIUM CHLORIDE 0.9% 50 ML IV PRN (10:02)
[2023-03-23] MEDS ORDERED: ATROPINE SULFATE 0.1 MG/ML 10ML SYR IV PRN (10:02)
--- NOTE | 2023-03-23 12:00 | Operative Report ---
PG Post Operative Report Pre & Post Diagnosis Operation Date: 03/23/23 10:00 Pre-Op Diagnosis: Rotator cuff arthropathy Post-Op Diagnosis: Rotator cuff arthropathy I identified the patient and participated in the time-out.: Yes Procedure Operation Date: 03/23/23 10:00 Actual Procedures p Right Reverse Total Shoulder Arthroplasty(Right) - Terence Lamb DO Surgeon Terence Lamb DO Freight Caller Terence Guo PA-C Estimated Blood Loss 150 Findings Consistent with Post-Op Diagnosis Specimens Right humeral head Description of Procedure Implants used: I used a Biomet Comprehensive reverse total shoulder arthroplasty system with a size 8 press fit micro humeral stem, a +6 offset humeral tray and a standard humeral bearing, a 25 mm medium augment baseplate with a 6.5 mm central screw and superior and inferior locking screws, and a size 36 mm eccentric glenosphere. Judy arrived at [facility] for the above procedure. She was seen in the preoperative holding area and the operative extremity was identified and signed. She was given a preoperative antibiotic, TXA, and an interscalene nerve block. She was taken back to the operating room, laid on table in supine position, and put under general anesthesia. She was then put into the beachchair position. The shoulder was then prepped and draped in sterile fashion. A timeout was done and the patient and the operative extremity was properly identified. A deltopectoral approach was used. Dissection was taken down through the fascia and the deltoid was retracted laterally and the conjoined tendon was retracted medially. The anterior shoulder was exposed. The subscapularis was then directly released off the lesser tuberosity with a peel technique. The inferior capsule was released and the humeral head was dislocated. A canal finding reamer was sent down the center of the humeral canal. Sequential reaming up to a size 8 reamer was done. Off that reamer, a proximal humeral resection guide was placed. The proximal humerus was resected at 135 of inclination and 25 of retroversion. Osteophytes were then removed and the glenoid was exposed. Time was spent doing a complete capsular and labral release. The glenoid guide was then placed in the inferior aspect of the glenoid. A 3.2 mm Steinmann pin was then placed into the glenoid vault at 10 of inclination. The glenoid baseplate was then reamed. The final size 25 mm medium augment baseplate was then impacted in the place. A 6.5 mm central screw was then placed followed by superior and inferior locking screws. A 36 mm eccentric glenosphere was then impacted into place. Surrounding soft tissues were then injected with 100 cc an orthopedic pain control cocktail. The proximal humerus was then exposed. Sequential broaching of the humerus up to a size 8 broach was done. Off that broach a +6 offset humeral tray was trialed. The shoulder was then reduced, brought through a full range of motion, and felt to be stable. The shoulder was then dislocated and the broach was removed. The final size 8 micro press-fit humeral stem was then impacted into place. A standard humeral bearing was then snapped onto a +6 offset humeral tray. The humeral tray was then impacted onto the humeral stem. The shoulder was once again reduced, brought through a full range of motion, and felt to be stable. The subscapularis was then tenodesed back to the lesser tuberosity with transosseous FiberWire sutures and side to side sutures with the arm in 45 of external rotation. A dilute betadyne lavage was then done for 3 minutes. The joint was then irrigated with normal saline solution. Hemostasis was obtained. The interval was closed with 2-0 Vicryl suture. The skin was then closed with 2-0 Vicryl and alex. A Silverlon dressing was placed and the arm was rested in a regular arm sling. She was then extubated and transferred to a hospital bed. She taken to the postanesthesia care unit in stable condition. She tolerated the procedure well. Terence Guo PA-C, was present for the entire procedure. He was critical for patient positioning, prepping, draping, retraction exposure, wound closure and application of sterile dressing. I attest to the content of the Intraoperative Record and any orders documented therein. Any exceptions are noted below.
[2023-03-23] MEDS ORDERED: SUGAMMADEX SODIUM 200 MG/2 ML VIAL IV ONE (12:02)
[2023-03-23] MEDS ORDERED: ONDANSETRON INJ 2 MG/ML 2 ML VIAL ONE (12:25)
[2023-03-23] MEDS ORDERED: PHENYLEPHRINE 100MCG/ML 5ML SYR ONE (12:25)
[2023-03-23] MEDS: HYDROmorphone INJ 1 MG/ML SYRINGE IV PRN ×8 (12:34→13:12)
--- NOTE | 2023-03-23 12:36 | XRay Report ---
XR shoulder RT min 2V routine HISTORY: 67 years-old Female Post shoulder surgery right shoulder arthroplasty COMPARISON: Chest radiograph 02/17/2023 TECHNIQUE: 2 views of the right shoulder FINDINGS: Reverse right shoulder total joint arthroplasty. Overlying skin alex with expected postoperative s oft tissue swelling and deep tissue air. No acute fracture or malalignment. The imaged lung velazquez ap pear clear. IMPRESSION: Reverse right shoulder total joint arthroplasty with expected postoperative changes. ACT 112: Negative or not required by law. The above report was generated using voice recognition software. It may contain grammatical, syntax o r spelling errors. Electronically signed by: Regan Ibrahim M.D. 03/23/2023 12:35 PM
[2023-03-23] MEDS ORDERED: METOCLOPRAMIDE HCL INJ 5 MG/ML 2 ML VIAL IV PRN (13:39)
[2023-03-23] MEDS ORDERED: MECLIZINE HCL 25 MG TAB PO PRN (13:39)
[2023-03-23] MEDS ORDERED: MAGNESIUM HYDROXIDE SUSP 30 ML UDC PO PRN (13:39)
[2023-03-23] MEDS ORDERED: bisacodyL 10 MG SUPP PR PRN (13:39)
[2023-03-23] MEDS ORDERED: HYDROmorphone INJ 0.5 MG/0.5 ML SYR IV PRN (13:39)
[2023-03-23] MEDS ORDERED: ONDANSETRON INJ 2 MG/ML 2 ML VIAL IV PRN (13:39)
[2023-03-23] MEDS ORDERED: NALOXONE HCL 0.4 MG/1 ML VIAL/CARP IV PRN (13:39)
[2023-03-23] MEDS: SODIUM CHLORIDE 0.9% 1,000 ML IV SCH ×2 (13:50→23:29)
--- NOTE | 2023-03-23 13:56 | Anesthesiology Progress Note ---
Date of Service March 23, 2023 Anesthesia Post Procedure Vital Signs Vital Signs: Temp Pulse Pulse Resp BP Pulse Ox O2 Del Method 03/23/23 13:40 36.3 C L 58 L 16 116/71 98 Nasal Cannula 03/23/23 13:25 60 12 101/60 96 Nasal Cannula 03/23/23 13:15 76 14 123/71 96 Nasal Cannula 03/23/23 13:05 66 12 116/71 98 Nasal Cannula 03/23/23 12:55 72 15 124/74 93 Room Air 03/23/23 12:45 36.3 C L 87 14 135/82 95 Room Air 03/23/23 12:35 93 H 18 134/93 98 Room Air 03/23/23 12:25 98 H 18 131/76 96 Oxymask 03/23/23 12:18 36 C L 90 18 137/86 98 Oxymask 03/23/23 08:55 36.7 C 78 18 134/92 95 Room Air O2 Flow Rate 03/23/23 13:40 2 03/23/23 13:25 2 03/23/23 13:15 2 03/23/23 13:05 2 03/23/23 12:55 03/23/23 12:45 03/23/23 12:35 03/23/23 12:25 4 03/23/23 12:18 6 03/23/23 08:55 Pain Intensity Right Shoulder: Pain Intensity: 5 Transfer of Care Handoff Completed per policy Notes Mental Status: alert / awake / arousable Patient Amnestic to Procedure: Yes Nausea / Vomiting: adequately controlled Pain: adequately controlled Airway Patency, RR, SpO2: stable & adequate BP & HR: stable & adequate Hydration State: stable & adequate Anesthetic Complications: no major complications apparent and Pt Satisfied with anesthetic care
[2023-03-23] MEDS: ACETAMINOPHEN 500 MG TAB PO SCH ×2 (15:00→21:07)
[2023-03-23] MEDS: KETOROLAC TROMETHAMINE 15 MG/ML VIAL IV SCH ×2 (15:00→19:45)
[2023-03-23] MEDS: ceFAZolin 2000MG 2,000 MG/15 ML SYR IV SCH (17:58)
[2023-03-23] MEDS ORDERED: SENNA 8.6 MG TAB PO SCH (21:00)
[2023-03-23] MEDS: oxyCODONE HCL IR 5 MG TAB (IMMEDIATE RELEASE) PO PRN (21:06)
[2023-03-23] MEDS: DOCUSATE SODIUM 100 MG CAP PO SCH (21:07)
[2023-03-24] MEDS: KETOROLAC TROMETHAMINE 15 MG/ML VIAL IV SCH ×2 (02:00→07:53)
[2023-03-24] MEDS: ceFAZolin 2000MG 2,000 MG/15 ML SYR IV SCH (02:03)
[2023-03-24] MEDS: oxyCODONE HCL IR 5 MG TAB (IMMEDIATE RELEASE) PO PRN ×3 (02:04→12:19)
[2023-03-24] MEDS: ACETAMINOPHEN 500 MG TAB PO SCH (05:28)
--- NOTE | 2023-03-24 06:49 | Orthopedic Progress Note ---
Date of Service March 24, 2023 Assessment & Plan (1) Status post reverse total replacement of right shoulder: Overall she is doing well. She is not having much pain in her right shoulder. She will be seen by physical therapy today for ambulation and range of motion exercises. She can be discharged home later today. She will follow with orthopedics in 2 weeks. Alisha Kim was seen and examined at bedside this morning. Overall she is doing fairly well. She is not having much pain in the right shoulder. She was able to get some sleep last night. She has no complaints.. Review of Systems All systems reviewed & are unremarkable except as noted in HPI & below. Physical Exam On physical examination of the right shoulder, the dressing is clean and dry. She has motion of her hand and her wrist. She is wearing her sling as instructed.. Results & Data Results & Data Laboratory Results . Diagnostic Findings Postoperative x-rays of the right shoulder show the prosthesis to be in anatomic alignment without any evidence of fracture complication, or loosening.. PG Care Time/CCT Total # of Minutes Spent Total Time Spent with Patient: Total time spent is greater than 50% in coordination of care (as documented) at patient's floor/unit and/or counseling patient: Coding Level of Care Code 86919 Post Operative Follow-Up Diagnoses Status post reverse total replacement of right shoulder Z96.611
--- NOTE | 2023-03-24 06:50 | Discharge Summary ---
Date of Service March 24, 2023 Admission HPI (Per Admitting) Judy is a pleasant 67-year-old female who has been dealing with chronic bilateral shoulder pain. She has had 2 failed rotator cuff repairs about 10 years ago. She then had a left reverse shoulder arthroplasty done by Dr. Dorsey several years ago and has done fairly well with that. She is now dealing with debilitating right shoulder pain. She has trouble doing anything away from her body or up overhead. X-rays and clinical examination have been diagnostic for cuff tear arthropathy of the right shoulder. After failing conservative treatment, she has elected proceed with a right reverse shoulder arthroplasty. Admission Exam (Per Admitting) On physical examination the right shoulder, she is about 120 degrees forward elevation 120 degrees of abduction. She has 3/5 muscle strength throughout.. Principal Diagnosis Same as "Discharge Diagnosis" noted below under Discharge Instructions. Discharge Exam On physical examination of the right shoulder, the dressing is clean and dry. She has motion of her hand and her wrist. She is wearing her sling as instructed.. Discharge Data Procedures Performed Operation Date: 03/23/23 10:00 Actual Procedures p Right Reverse Total Shoulder Arthroplasty(Right) - Terence Lamb DO Ordered Studies 03/23/23 05:00 US - OR guided needle placemen Routine Hospital Course (1) Status post reverse total replacement of right shoulder: On March 23, 2023 Judy arrived at [facility] and underwent a right reverse shoulder replacement without complication. She had a general anesthetic and a right interscalene nerve block. Postoperatively she was placed in a sling and transferred to the general orthopedic floors. Her hospital course was uneventful. On postop day #1, her vital signs were stable and her pain was well controlled. She was able to participate well with physical therapy doing ambulation and range of motion exercises. She was then discharged home. She will follow-up with orthopedics in 2 weeks. PG Care Time/CCT Total # of Minutes Spent Total Time Spent with Patient: Total time spent is greater than 50% in coordination of care (as documented) at patient's floor/unit and/or counseling patient: Discharge Plan Discharge Items Patient Disposition: Home - Home Health Services Reason For Visit: DJD Right Shoulder Discharge Diagnosis: Right reverse shoulder replacement Activity: Per Instructions section Non-emergency contact: Surgeon Call non-emergency contact if: your wound has increased redness and your wound has increased drainage Follow-up/Referrals: Breann Valle DO [Primary Care Provider] - Diet: Regular Addtl Attending Provider Instructions: Activity and Therapy Recommendations: * If you are using [facility] then therapy will be provided at your home until they feel you have accomplished all of your goals. * If you are using [facility] then Physical Therapy will be provided until they feel you are ready to start Outpatient Physical Therapy. * If you are not using home therapy then Outpatient Physical Therapy should start about 3-5 days from your day of surgery. Therapy will last about 8-12 weeks * Wear your sling for 3 weeks, unless otherwise instructed. You may remove your sling to shower and to dress, but otherwise, you should be in your sling at all times, including while sleeping * The shoulder replacement is very stable and you can use your hand while in the sling * You were shown a series of exercises in the hospital. Do these exercises daily including the exercises you were shown in physical therapy. Medications: * Narcotic You will likely be sent home from the hospital with a prescription for the narcotic pain medication that worked best throughout your stay. * Other medications may be prescribed for specific circumstances. If you have any questions, please call the office at . * Resume previous home medications unless otherwise instructed Dressing Care: Leave the Silverlon dressing in place for 7 days. After 7 days you may remove the dressing. If the incision is not draining then you may leave the alex open to air. If there is a little bit of drainage or if the alex are getting stuck on your clothing then cover the incision with a dry dressing. The alex will be removed at your 2 week follow-up appointment. Showering: You may shower with the Silverlon dressing in place. Do not let the shower spray hit the dressing directly. Pat the Silverlon dressing dry. If the dressing becomes wet underneath, then simply remove the dressing. Keep the incision dry until you are 7 days out from the day of surgery. After 7 days you may remove the Silverlon dressing and shower with the alex exposed. Let soapy water run over the alex and pat them dry. Do not scrub or soak the incision. Things To Watch For: * Drainage from the incision site that occurs more than one week after your surgery. * Increased redness at the incision site. * Fever above 102 degrees Fahrenheit. * Unusual chest pain or shortness of breath. * Call [facility] at with any of the above problems Follow-Up Visit: Follow-up with Dr. Lamb's PA (Terence Guo) 2-3 weeks after your day of surgery. He will remove your alex and answer any questions. If you have any additional questions or concerns, Dr Lamb is usually in the office at the same time and will be available An appointment was probably scheduled when you signed-up for surgery in the office. If you have any questions call More detailed instructions as well as Frequently Asked Questions were provided in a folder by our office when you signed-up for surgery. Please review these instructions when you get home. If you have any further questions or concerns, please feel free to call the office at [phone] Pending Studies at Discharge: No Stand-Alone Forms: My [facility], Smoking Cessation Medications and DC Order Prescriptions: New oxycodone 5 mg Tablet 5 mg PO Q4H PRN (Reason: pain) Qty: 30 0RF Continued diazepam [Valium] 5 mg tablet 5 mg PO Q6H PRN (Reason: anxiety) Qty: 14 0RF tramadol 50 mg Tablet 50 mg PO UD PRN (Reason: Pain) ashwagandha root extract 500 mg Capsule 500 mg PO HS meclizine 25 mg Tablet 25 mg PO TID PRN (Reason: Vertigo) Admission Data Admit Date/Time: 03/23/23 12:11 Attending Provider: Terence Lamb Admit Provider: Terence Lamb Primary Care Provider: Breann Valle
[2023-03-24] MEDS: DOCUSATE SODIUM 100 MG CAP PO SCH (07:53)
[2023-03-24] MEDS ORDERED: dexAMETHasone 4 MG TAB PO SCH (08:00)
[2023-03-24] MEDS ORDERED: MULTIVITAMIN TAB PO SCH (09:00)
== END 2023-03-24 13:10 | disposition home or self-care (01) ==
LOC: ASU 07:57 → 3E 07:57